=== PATIENT | female | born 1980 | race Caucasian/White ===

== ENCOUNTER 2017-07-26 21:34 | Emergency (ER) | payer OTHER, MEDICAID, SELFPAY | END 2017-07-26 23:44 | disposition home or self-care (01) | PROVIDERS: Emergency Provider Emergency Medicine; Visit Provider Emergency Medicine | DX: S89.91XA Unspecified injury of right lower leg, initial encounter (principal); W19.XXXA Unspecified fall, initial encounter | CPT/HCPCS: 73562; 99283 ==

== ENCOUNTER 2017-09-02 20:44 | Emergency (ER) | payer OTHER, MEDICAID, SELFPAY ==
[2017-09-02 20:57] VITALS: BP 116/82; PULSE 107; RESP 20; TEMP 37.7; O2SAT 100
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
--- NOTE | 2017-09-02 22:45 | DI.RAD.S_ITS ---
PROCEDURE: XR CHEST 2V INDICATIONS: cough, malaise TECHNIQUE: 2 views of the chest were acquired. COMPARISON: [facility], , CHEST 2 VIEW, 12/25/2016, 10:22. FINDINGS: Surgical changes and devices: None. Lungs and pleura: No pleural effusions or pneumothorax. Lungs are clear. Bilaterally symmetric nipple shadows incidentally noted. Mediastinum: Mediastinal contours are normal. Heart size is normal. Bones and chest wall: No suspicious bony abnormalities. Incidentally noted pectus excavatum Soft tissues appear unremarkable. IMPRESSION: No acute disease. Dictated by: Grady Rojas M.D. on 09/03/2017 at 7:25 Approved by: Grady Rojas M.D. on 09/03/2017 at 7:26
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
[2017-09-03 00:08] VITALS: BP 101/78; PULSE 78; RESP 18; O2SAT 98
== END 2017-09-03 00:20 | disposition home or self-care (01) ==
PROVIDERS: Emergency Provider Emergency Medicine
DX: J32.9 Chronic sinusitis, unspecified (principal)
CPT/HCPCS: 71046; 99282; 99283

== ENCOUNTER 2018-03-13 15:20 | Emergency (ER) | payer SELFPAY ==
[2018-03-13 15:28] VITALS: BP 123/78; PULSE 113; RESP 20; TEMP 37.1; O2SAT 100; BMI 20.6
[2018-03-13 17:17] LABS: Prothrombin Time 10.8 SECONDS (10.1-12.7)
[2018-03-13 17:19] LABS: PTT Partial Thromboplastin Tim 31 SECONDS (26.4-36.2)
[2018-03-13 17:20] LABS: Add Manual Diff / Slide Review NO; Basophils Percent Auto 0.7 % (0-2); Eosinophils Percent Auto 1.2 % (2-4); Hematocrit 44.8 % (36-46); Hemoglobin 15.5 g/dL (12.0-16.0); Lymphocytes Percent Auto 11.8 % (25-40); Mean Corpuscular HGB Conc 34.6 % (30-36); Mean Corpuscular Hemoglobin 32.7 PG (26-34); Mean Corpuscular Volume 94.6 fL (80-100); Neutrophils Absolute Auto 9000 /uL (3000-5900); Neutrophils Percent Auto 79.3 % (50-75); Platelet Count 215 X10^3/uL (150-400); Red Blood Cell Count 4.74 X10^6/uL (4.0-5.2); Red Cell Distribution Width 14.5 % (11.6-14.8); White Blood Cell Count 11.4 X10^3/uL (4.5-11.0)
--- NOTE | 2018-03-13 17:20 | PC.NURSE ---
Reports urine tests dont always show . States 2 tests at home positive. She brought those. Urine preg negative here. Added qual preg to blood
[2018-03-13 17:21] LABS: Alanine Aminotransferase 21 IU/L (9-52); Albumin 4.6 g/dL (3.5-5.0); Albumin Globulin Ratio 1.6 (1.0-2.8); Alkaline Phosphatase 52 U/L (38-126); Aspartate Aminotransferase 24 IU/L (14-36); BUN Creatinine Ratio 12.9 (6-22); Bilirubin Total 0.8 mg/dL (0.2-1.3); Blood Urea Nitrogen 9 mg/dL (7-17); Calcium 9.1 mg/dL (8.4-10.2); Carbon Dioxide 26 mmol/L (22-32); Chloride 103 mmol/L (98-107); Creatine Kinase 115 U/L (30-135); Estimated Glomerular Filt Rate > 60.0 mL/min (>60); Globulin 2.9 g/dL (1.7-4.1); Glucose 93 mg/dL (70-100); HEMOLYSIS < 15 (0-50); Lipase 82 U/L (23-300); Potassium 4.1 mmol/L (3.4-5.1); Sodium 140 mmol/L (137-145); Total Protein 7.5 g/dL (6.3-8.2)
[2018-03-13 17:33] LABS: Troponin I < 0.012 ng/mL (0.01-0.034)
[2018-03-13 17:36] LABS: CKMB % Relative Index 0.8 % (1.5-5.0); Creatine Kinase MB 0.94 ng/mL (<2.37)
[2018-03-13 17:40] LABS: Bacteria Urine Moderate (10-30); Culture Indicated Urine Specimen Cultured; RBC Urine 0-1/HPF (0-5/HPF); Squamous Epithelial Cell Urine None Seen; WBC Urine 0-1/HPF (0-5/HPF)
[2018-03-13 18:07] LABS: HCG Quantitative /Beta subunit < 2.39 mIU/mL
--- NOTE | 2018-03-13 18:13 | ED.BACK ---
HPI - Back Pain/Injury <ANETA Gage - Last Filed: 03/13/18 22:36> General Chief Complaint: Back Pain/Injury Stated Complaint: LT SHOULDER PAIN Time Seen by Provider: 03/13/18 17:30 Source: patient Mode of arrival: ambulatory Limitations: no limitations History of Present Illness HPI Narrative: 37-year-old female with history of anxiety that is an everyday smoker here for complaint of pain to her chest and to her left anterior posterior shoulder for the past month. She denies any trauma to the area. 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 She states that intermittently she will get pain or numbness that goes down her left arm. She denies any stressors or relievers of the discomfort she also states she has had two home tests yesterday. She denies any other concerns Related Data Home Medications Medication Instructions Recorded Confirmed diphenhydramine HCl 50 mg PO PRN PRN #0 03/26/16 03/13/18 [vitamins] 1 dose PO DAILY #0 12/29/16 03/13/18 albuterol sulfate [Ventolin HFA] 2 puff INH PRN PRN #0 12/29/16 03/13/18 acetaminophen [Tylenol Extra 500 mg PO PRN PRN 03/13/18 03/13/18 Strength] epinephrine 0.3 mg IM X1 PRN 03/13/18 03/13/18 Allergies Allergy/AdvReac Type Severity Reaction Status Date / Time almond [ALMOND] Allergy Unknown Verified 09/02/17 21:01 aspirin [ASPIRIN] Allergy Unknown Verified 09/02/17 21:01 egg [EGG] Allergy Unknown Verified 09/02/17 21:01 hazelnut [HAZELNUT] Allergy Unknown Verified 09/02/17 21:01 ibuprofen [IBUPROFEN] Allergy Unknown Verified 09/02/17 21:01 latex [LATEX] Allergy Unknown Verified 09/02/17 21:01 soy [SOY] Allergy Unknown Verified 09/02/17 21:01 tree nut [TREE NUT] Allergy Unknown Verified 09/02/17 21:01 acetaminophen [From Vicodin] Allergy Verified 09/02/17 21:02 hydrocodone [From Vicodin] Allergy Verified 09/02/17 21:02 diazepam [DIAZEPAM] AdvReac Unknown Verified 05/20/18 21:01 promethazine [PROMETHAZINE] AdvReac Unknown Verified 09/02/17 21:01 tetracycline [TETRACYCLINE] AdvReac Unknown Verified 09/02/17 21:02 Review of Systems <ANETA Gage - Last Filed: 03/13/18 22:36> Constitutional Denies chills, Denies fatigue, Denies fever(s), Denies lethargy and Denies weakness Eyes Denies change in vision, Denies eye discharge, Denies irritation and Denies loss of vision ENT Ears, Nose, Mouth, and Throat: Denies change in voice, Denies neck pain and Denies sore throat Cardiovascular Reports chest pain, Denies dyspnea and Denies dyspnea on exertion Respiratory Denies cough, Denies dyspnea, Denies dyspnea on exertion and Denies wheezing Gastrointestinal Gastrointestinal: Denies abdominal pain, Denies change in bowel habits, Denies diarrhea, Denies nausea and Denies vomiting Genitourinary Denies hematuria, Denies flank pain, Denies urinary incontinence and Denies urinary urgency Musculoskeletal Denies neck pain Comments: Left shoulder pain Integumentary/Breasts Denies pruritus, Denies erythema, Denies rash and Denies wounds Neurologic Denies confusion, Denies loss of vision and Denies weakness Psychiatric Denies anxiety, Denies confusion, Denies depression, Denies homicidal ideation and Denies suicidal ideation Endocrine Denies fatigue and Denies flushing Hematologic/Lymphatic Denies easy bruising Allergic/Immunologic Denies wheezing Exam <ANETA Gage - Last Filed: 03/13/18 22:36> Initial Vital Signs Initial Vital Signs: Vital Signs Temperature 98.7 F 03/13/18 15:28 Pulse Rate 113 H 03/13/18 15:28 Respiratory Rate 20 03/13/18 15:28 Blood Pressure 123/78 03/13/18 15:28 Pulse Oximetry 100 03/13/18 15:28 Const General: cooperative and well developed Nutritional Appearance: well nourished Orientation: alert, awake, oriented x3 and not confused HENMT Mouth: oral mucosae normal and moist mucous membranes Eyes Conjunctivae: conjunctivae normal Sclera: sclerae normal Pupils: PERRL EOM: EOM intact bilaterally Chest Other: Tenderness on palpation to anterior chest Resp Effort & Inspection: normal respiratory effort, able to speak in complete sentences, no respiratory distress and no use of accessory muscles Auscultation: clear to auscultation bilaterally, no rales, no rhonchi and no wheezes Cardio Rate: regular rate Rhythm: regular rhythm Heart Sounds: no click, no gallops, no murmurs and no rubs GI Inspection: non-distended Palpation: soft, no hepatosplenomegaly, No guarding, No pulsatile mass and No tender Auscultation: normal bowel sounds Skin General: no rashes or lesions noted, No jaundice and No petechiae Neuro General: alert, oriented x3, gait normal and no focal motor deficits Speech: speech normal Extrem Other: Tenderness on palpation to the thoracic left paraspinals and also to the left scapular area. Left extremity with no signs of trauma. No tenderness. Distal sensation is intact. Distal pulses are intact. Full Range of motion <Alex Grant DO - Last Filed: 03/14/18 00:30> Initial Vital Signs Initial Vital Signs: Vital Signs Temperature 98.7 F 03/13/18 15:28 Pulse Rate 113 H 03/13/18 15:28 Respiratory Rate 20 03/13/18 15:28 Blood Pressure 123/78 03/13/18 15:28 Pulse Oximetry 100 03/13/18 15:28 Course <ANETA Gage - Last Filed: 03/13/18 22:36> Orders Ordered: ED Orders 03/13/18 15:32 EKG-12 Lead Stat 03/13/18 16:57 Complete Blood Count AUTO DIFF Stat Comprehensive Metabolic Panel Stat HCG Quantitative Stat Lipase Stat Partial Thromboplastin Time Stat Prothrombin Time INR Stat Troponin & CK Cardiac Panel Stat 03/13/18 17:15 Urine Culture Stat Urine Microscopic Stat Vital Signs - 8 hr 03/13/18 18:18 Pulse Rate 92 H Respiratory Rate 15 Blood Pressure [Left Arm] 106/69 Pulse Oximetry 96 <Alex Grant DO - Last Filed: 03/14/18 00:30> Orders Ordered: ED Orders 03/13/18 15:32 EKG-12 Lead Stat 03/13/18 16:57 Complete Blood Count AUTO DIFF Stat Comprehensive Metabolic Panel Stat HCG Quantitative Stat Lipase Stat Partial Thromboplastin Time Stat Prothrombin Time INR Stat Troponin & CK Cardiac Panel Stat 03/13/18 17:15 Urine Culture Stat Urine Microscopic Stat Vital Signs - 8 hr 03/13/18 18:18 Pulse Rate 92 H Respiratory Rate 15 Blood Pressure [Left Arm] 106/69 Pulse Oximetry 96 MDM - Back Pain/Injury <ANETA Gage - Last Filed: 03/13/18 22:36> Lab Data Result diagrams: 03/13/18 16:57 03/13/18 16:57 Lab Results 03/13/18 03/13/18 03/13/18 Range/Units 16:57 16:57 16:57 WBC 11.4 H (4.5-11.0) X10^3/uL RBC 4.74 (4.0-5.2) X10^6/uL Hgb 15.5 (12.0-16.0) g/dL Hct 44.8 (36-46) % MCV 94.6 (80-100) fL MCH 32.7 (26-34) PG MCHC 34.6 (30-36) % RDW 14.5 (11.6-14.8) % Plt Count 215 (150-400) X10^3/uL Neut % (Auto) 79.3 H (50-75) % Lymph % (Auto) 11.8 L (25-40) % [place] % (Auto) 7.0 (3-14) % Eos % (Auto) 1.2 L (2-4) % Baso % (Auto) 0.7 (0-2) % Neut # (Auto) 9000 H (7720-2544) /uL PT 10.8 (10.1-12.7) SECONDS INR 1.0 (0.9-1.3) APTT 31 (26.4-36.2) SECONDS Sodium 140 (137-145) mmol/L Potassium 4.1 (3.4-5.1) mmol/L Chloride 103 (98-107) mmol/L Carbon Dioxide 26 (22-32) mmol/L BUN 9 (7-17) mg/dL Creatinine 0.70 (0.52-1.04) mg/dL Estimated GFR > 60.0 (>60) mL/min BUN/Creatinine Ratio 12.9 (6-22) Glucose 93 (70-100) mg/dL Calcium 9.1 (8.4-10.2) mg/dL Total Bilirubin 0.8 (0.2-1.3) mg/dL AST 24 (14-36) IU/L ALT 21 (9-52) IU/L Alkaline Phosphatase 52 (38-126) U/L Total Creatine Kinase 115 (30-135) U/L CK-MB (CK-2) 0.94 (<2.37) ng/mL CK-MB (CK-2) Rel Index 0.8 L (1.5-5.0) % Troponin I < 0.012 (0.01-0.034) ng/mL Total Protein 7.5 (6.3-8.2) g/dL Albumin 4.6 (3.5-5.0) g/dL Globulin 2.9 (1.7-4.1) g/dL Albumin/Globulin Ratio 1.6 (1.0-2.8) Lipase 82 (23-300) U/L HCG, Quant mIU/mL Urine RBC (0-5/HPF) Urine WBC (0-5/HPF) Ur Squamous Epith Cells Urine Bacteria (None) Ur Culture Indicated? Micro UA Comment 03/13/18 03/13/18 Range/Units 16:57 17:15 WBC (4.5-11.0) X10^3/uL RBC (4.0-5.2) X10^6/uL Hgb (12.0-16.0) g/dL Hct (36-46) % MCV (80-100) fL MCH (26-34) PG MCHC (30-36) % RDW (11.6-14.8) % Plt Count (150-400) X10^3/uL Neut % (Auto) (50-75) % Lymph % (Auto) (25-40) % [place] % (Auto) (3-14) % Eos % (Auto) (2-4) % Baso % (Auto) (0-2) % Neut # (Auto) (0886-4672) /uL PT (10.1-12.7) SECONDS INR (0.9-1.3) APTT (26.4-36.2) SECONDS Sodium (137-145) mmol/L Potassium (3.4-5.1) mmol/L Chloride (98-107) mmol/L Carbon Dioxide (22-32) mmol/L BUN (7-17) mg/dL Creatinine (0.52-1.04) mg/dL Estimated GFR (>60) mL/min BUN/Creatinine Ratio (6-22) Glucose (70-100) mg/dL Calcium (8.4-10.2) mg/dL Total Bilirubin (0.2-1.3) mg/dL AST (14-36) IU/L ALT (9-52) IU/L Alkaline Phosphatase (38-126) U/L Total Creatine Kinase (30-135) U/L CK-MB (CK-2) (<2.37) ng/mL CK-MB (CK-2) Rel Index (1.5-5.0) % Troponin I (0.01-0.034) ng/mL Total Protein (6.3-8.2) g/dL Albumin (3.5-5.0) g/dL Globulin (1.7-4.1) g/dL Albumin/Globulin Ratio (1.0-2.8) Lipase (23-300) U/L HCG, Quant < 2.39 mIU/mL Urine RBC 0-1/hpf (0-5/HPF) Urine WBC 0-1/hpf (0-5/HPF) Ur Squamous Epith Cells None seen Urine Bacteria Moderate (10-30) H (None) Ur Culture Indicated? Specimen cultured Micro UA Comment Not Reportable Point of Care Testing Test Results Negative Urine Dip Bedside Urine Glucose Negative Bedside Urine Bilirubin - Negative Bedside Urine Ketone - Negative Urine Specific [place] 1.010 Bedside Urine Occult Blood - Negative Bedside Urine pH 6.5 Bedside Urine Protein - Negative Bedside Urine Urobilinogen - Negative Bedside Urine Nitrite + Positive Bedside Urine Leukocytes - Negative Esterase ECG Data Interpretation: EKG shows sinus rhythm with no ST elevation. No ectopy. Ventricular rate of 92. Pr interval of 140. QRS duration of 79. QTC of 402 MDM Narrative Medical decision making narrative: EKG shows sinus rhythm with no ST elevation or depression. No ectopy. CBC was obtained and shows mildly elevated white count of 11.4 And elevated neutrophils otherwise is unremarkable. Chem panel was obtained was unremarkable. Troponin was negative. urinalysis was negative for and showed moderate bacteria however no white count and no leuko esterase. Patient is not having any urinary symptoms. POC urine dip was negative for . HCG quant was obtained and was less than 2. It is possible patient may have had a miscarriage between the time of her positive home test and arrival to the emergency room. Chest x-ray and shoulder x-ray was ordered however patient refused and decided she wanted to leave and go home. Recommended patient obtain a chest x-ray and shoulder I have x-ray she refused left AMA. She is encouraged to follow up with primary care provider. <Alex Grant, DO - Last Filed: 03/14/18 00:30> Lab Data Lab Results 03/13/18 03/13/18 03/13/18 Range/Units 16:57 16:57 16:57 WBC 11.4 H (4.5-11.0) X10^3/uL RBC 4.74 (4.0-5.2) X10^6/uL Hgb 15.5 (12.0-16.0) g/dL Hct 44.8 (36-46) % MCV 94.6 (80-100) fL MCH 32.7 (26-34) PG MCHC 34.6 (30-36) % RDW 14.5 (11.6-14.8) % Plt Count 215 (150-400) X10^3/uL Neut % (Auto) 79.3 H (50-75) % Lymph % (Auto) 11.8 L (25-40) % [place] % (Auto) 7.0 (3-14) % Eos % (Auto) 1.2 L (2-4) % Baso % (Auto) 0.7 (0-2) % Neut # (Auto) 9000 H (4867-3490) /uL PT 10.8 (10.1-12.7) SECONDS INR 1.0 (0.9-1.3) APTT 31 (26.4-36.2) SECONDS Sodium 140 (137-145) mmol/L Potassium 4.1 (3.4-5.1) mmol/L Chloride 103 (98-107) mmol/L Carbon Dioxide 26 (22-32) mmol/L BUN 9 (7-17) mg/dL Creatinine 0.70 (0.52-1.04) mg/dL Estimated GFR > 60.0 (>60) mL/min BUN/Creatinine Ratio 12.9 (6-22) Glucose 93 (70-100) mg/dL Calcium 9.1 (8.4-10.2) mg/dL Total Bilirubin 0.8 (0.2-1.3) mg/dL AST 24 (14-36) IU/L ALT 21 (9-52) IU/L Alkaline Phosphatase 52 (38-126) U/L Total Creatine Kinase 115 (30-135) U/L CK-MB (CK-2) 0.94 (<2.37) ng/mL CK-MB (CK-2) Rel Index 0.8 L (1.5-5.0) % Troponin I < 0.012 (0.01-0.034) ng/mL Total Protein 7.5 (6.3-8.2) g/dL Albumin 4.6 (3.5-5.0) g/dL Globulin 2.9 (1.7-4.1) g/dL Albumin/Globulin Ratio 1.6 (1.0-2.8) Lipase 82 (23-300) U/L HCG, Quant mIU/mL Urine RBC (0-5/HPF) Urine WBC (0-5/HPF) Ur Squamous Epith Cells Urine Bacteria (None) Ur Culture Indicated? Micro UA Comment 03/13/18 03/13/18 Range/Units 16:57 17:15 WBC (4.5-11.0) X10^3/uL RBC (4.0-5.2) X10^6/uL Hgb (12.0-16.0) g/dL Hct (36-46) % MCV (80-100) fL MCH (26-34) PG MCHC (30-36) % RDW (11.6-14.8) % Plt Count (150-400) X10^3/uL Neut % (Auto) (50-75) % Lymph % (Auto) (25-40) % [place] % (Auto) (3-14) % Eos % (Auto) (2-4) % Baso % (Auto) (0-2) % Neut # (Auto) (9538-0332) /uL PT (10.1-12.7) SECONDS INR (0.9-1.3) APTT (26.4-36.2) SECONDS Sodium (137-145) mmol/L Potassium (3.4-5.1) mmol/L Chloride (98-107) mmol/L Carbon Dioxide (22-32) mmol/L BUN (7-17) mg/dL Creatinine (0.52-1.04) mg/dL Estimated GFR (>60) mL/min BUN/Creatinine Ratio (6-22) Glucose (70-100) mg/dL Calcium (8.4-10.2) mg/dL Total Bilirubin (0.2-1.3) mg/dL AST (14-36) IU/L ALT (9-52) IU/L Alkaline Phosphatase (38-126) U/L Total Creatine Kinase (30-135) U/L CK-MB (CK-2) (<2.37) ng/mL CK-MB (CK-2) Rel Index (1.5-5.0) % Troponin I (0.01-0.034) ng/mL Total Protein (6.3-8.2) g/dL Albumin (3.5-5.0) g/dL Globulin (1.7-4.1) g/dL Albumin/Globulin Ratio (1.0-2.8) Lipase (23-300) U/L HCG, Quant < 2.39 mIU/mL Urine RBC 0-1/hpf (0-5/HPF) Urine WBC 0-1/hpf (0-5/HPF) Ur Squamous Epith Cells None seen Urine Bacteria Moderate (10-30) H (None) Ur Culture Indicated? Specimen cultured Micro UA Comment Not Reportable Point of Care Testing Test Results Negative Urine Dip Bedside Urine Glucose Negative Bedside Urine Bilirubin - Negative Bedside Urine Ketone - Negative Urine Specific [place] 1.010 Bedside Urine Occult Blood - Negative Bedside Urine pH 6.5 Bedside Urine Protein - Negative Bedside Urine Urobilinogen - Negative Bedside Urine Nitrite + Positive Bedside Urine Leukocytes - Negative Esterase Discharge Plan Departure Patient Disposition: Left Against Medical Advice Clinical Impression: Chest pain, Acute pain of left shoulder Discharge Date/Time: 03/13/18 18:56 Interventions: ED Discharge Assessment Last Done: 03/13/18 18:56 Prescriptions: No Action diphenhydramine HCl 50 MG capsule 50 mg PO PRN PRN (Reason: Allergy Symptoms) Qty: 0 RF: 0 albuterol sulfate [Ventolin HFA] 90 MCG/PUFF HFA aerosol inhaler 2 puff INH PRN PRN (Reason: Shortness Of Breath) Qty: 0 RF: 0 [vitamins] 1 dose PO DAILY Qty: 0 RF: 0 acetaminophen [Tylenol Extra Strength] 500 mg Tablet 500 mg PO PRN PRN (Reason: pain) RF: 0 epinephrine 0.3 MG/0.3 ML auto-injector 0.3 mg IM X1 PRN (Reason: Allergic Reaction) RF: 0 Referrals: [facility] [Provider Group] Stand Alone Forms: Against Medical Advice <Alex Grant DO - Last Filed: 03/14/18 00:30> Cosign ED Attending Sada Attestation: I was available for consultation during this patient's emergency department encounter
[2018-03-13 18:18] VITALS: BP 106/69; PULSE 92; RESP 15; O2SAT 96
== END 2018-03-13 18:56 | disposition left against medical advice (07) ==
PROVIDERS: Emergency Medicine; Emergency Provider Nurse Practitioner Family
DX: R07.89 Other chest pain (principal); M25.512 Pain in left shoulder
CPT/HCPCS: 36415; 80053; 81003; 81015; 81025; 82550; 82553; 83690; 84484; 84702; 85025; 85610; 85730; 87077; 87086; 87186; 93005; 93010; 99283; 99284

== ENCOUNTER 2018-06-02 18:03 | Emergency (ER) | payer SELFPAY ==
[2018-06-02 18:14] VITALS: BP 136/89; PULSE 117; RESP 28; TEMP 36.9; O2SAT 100; BMI 19.8
--- NOTE | 2018-06-02 18:22 | ED.ALLEREA ---
HPI - Allergic Reaction General Chief complaint: Allergic Reaction Stated complaint: Allergic reaction Time Seen by Provider: 06/02/18 18:22 Source: patient Mode of arrival: EMS Limitations: no limitations History of Present Illness HPI narrative: The patient arrives by EMS complaining of an allergic reaction. Her boyfriend was kicked out of her house today because he vapors, and refused to quit. What ever he was smoking was making her sick, anxious, and she is convinced she had a reaction. She is feeling anxious and short of breath. She has no asthma or allergies. She is not a smoker. She denies using drugs herself. She has a history of nut allergy, she says the current reaction feels like a nut exposure. She has no airway tightness. She is not coughing. There is slight redness in her anterior neck, no other rash. She took Benadryl 50 mg p.o. at home prior to arrival. Paramedics gave her an injection of epinephrine. Upon arrival she is anxious. She is talking in full sentences. There is no voice change or obvious difficulty breathing. She denies a nice exposure to nuts, her known food allergy. She slipped on ice and fell striking her head about 1 week ago. She complains of posterior headache. She has no confusion. She has no visual changes. She has injuries on her lower leg but she was unaware of. Related Data Home Medications Medication Instructions Recorded Confirmed diphenhydramine HCl 50 mg PO PRN PRN #0 03/26/16 03/13/18 [vitamins] 1 dose PO DAILY #0 12/29/16 03/13/18 albuterol sulfate [Ventolin HFA] 2 puff INH PRN PRN #0 12/29/16 03/13/18 acetaminophen [Tylenol Extra 500 mg PO PRN PRN 03/13/18 03/13/18 Strength] epinephrine 0.3 mg IM X1 PRN 03/13/18 03/13/18 Allergies Allergy/AdvReac Type Severity Reaction Status Date / Time almond [ALMOND] Allergy Unknown Verified 06/02/18 18:14 aspirin [ASPIRIN] Allergy Unknown Verified 06/02/18 18:14 egg [EGG] Allergy Unknown Verified 06/02/18 18:14 hazelnut [HAZELNUT] Allergy Unknown Verified 06/02/18 18:14 ibuprofen [IBUPROFEN] Allergy Unknown Verified 06/02/18 18:14 latex [LATEX] Allergy Unknown Verified 06/02/18 18:14 soy [SOY] Allergy Unknown Verified 06/02/18 18:14 tree nut [TREE NUT] Allergy Unknown Verified 06/02/18 18:14 acetaminophen [From Vicodin] Allergy Verified 06/02/18 18:14 hydrocodone [From Vicodin] Allergy Verified 06/02/18 18:14 diazepam [DIAZEPAM] AdvReac Unknown Verified 06/02/18 18:14 promethazine [PROMETHAZINE] AdvReac Unknown Verified 06/02/18 18:14 tetracycline [TETRACYCLINE] AdvReac Unknown Verified 06/02/18 18:14 Review of Systems Review of Systems ROS Unobtainable: All systems reviewed & are unremarkable except as noted in HPI and below Constitutional Denies excessive sweating, Denies fatigue, Denies fever(s), Reports headache(s) and Denies lethargy Eyes Denies blind spots, Denies blurry vision and Denies diplopia ENT Ears, Nose, Mouth, and Throat: Denies dysphagia, Denies vertigo, Denies dizziness, Reports headache(s), Reports nasal discharge and Denies sinus pain Comments: Left ear pain Cardiovascular Denies chest pain, Denies irregular heart rhythm, Denies lightheadedness, Denies palpitations, Reports dyspnea, Denies dyspnea on exertion and Denies orthopnea Respiratory Denies cough, Reports dyspnea, Denies dyspnea on exertion and Denies wheezing Gastrointestinal Gastrointestinal: Reports abdominal pain ( epigastric) and Denies dysphagia Comments: Decreased appetite. Decreased bowel movements. Genitourinary Denies urinary frequency and Denies dysuria Musculoskeletal Denies myalgias Integumentary/Breasts Denies pruritus and Denies rash Neurologic Denies vertigo, Denies dizziness and Reports headache(s) Endocrine Denies excessive sweating, Denies fatigue and Denies palpitations Allergic/Immunologic Denies wheezing PFSH Medical History Nut allergy (Acute) Surgical History History of tonsillectomy Status post delivery Social History Smoking Status: Current every day smoker Social History Smoking Status: Current every day smoker Exam Initial Vital Signs Initial Vital Signs: Vital Signs Temperature 98.4 F 06/02/18 18:14 Pulse Rate 117 H 06/02/18 18:14 Respiratory Rate 28 H 06/02/18 18:14 Blood Pressure 136/89 06/02/18 18:14 Pulse Oximetry 100 06/02/18 18:14 Const General: cooperative, well developed, anxious, No ill appearing and No intoxicated appearing Nutritional Appearance: average body habitus Orientation: alert and oriented x3 Limitations: mental status not altered HENMT Head: normocephalic and atraumatic Ears: TM's normal bilaterally and other ( both TMs are retracted, not infected) Nose: external nose normal and No nasal discharge Face and sinus: sinuses nontender, face symmetric, no sinus tenderness and No dry mucous membranes Mouth: oral mucosae normal, moist mucous membranes and other ( no oralpharyngeal edema or erythema) Teeth and gingiva: dentition normal Throat: tonsils normal and uvula midline Eyes Conjunctivae: conjunctivae normal Neck Neck: normal visual inspection, full ROM, trachea midline, No lymphadenopathy and No tender Chest Chest: normal inspection of the chest Resp Effort & Inspection: normal respiratory effort, able to speak in complete sentences and no respiratory distress Auscultation: clear to auscultation bilaterally, no rales, no rhonchi and no wheezes Cardio Rate: regular rate Rhythm: regular rhythm Heart Sounds: no click, no gallops, no murmurs and no rubs Pulses: normal peripheral pulses GI Inspection: non-distended Palpation: soft, no hepatosplenomegaly, No pulsatile mass and tender ( mild epigastric tenderness without guarding or rebound) Auscultation: normal bowel sounds Back/Spine/Pelvis Back: No CVA tenderness Skin General: no rashes or lesions noted Neuro General: alert, awake, oriented x3, gait normal and no focal motor deficits Speech: speech normal Extrem General: full ROM, no pedal edema, no calf tenderness and other ( Contusions on lower anterior tibias bilaterally) Course Course Narrative: Her anxiety has improved. She has no rash. Her airway is clear. Her lungs are clear. she was clearly in a stressful interaction today with her boyfriend departing. It is unknown what substance was being utilized while vaping. She presented with concerns about allergic reaction, but clearly has an anxiety problem immediately. On repeat exam there is no issues with allergic reaction, she continues to have an anxiety concern. She is now concerned about headache, ear pain, bruises on her legs, abdominal pain, complaints are ongoing. She was given Maalox for stomach pain and lack of bowel movements. She has eardrum retraction, no infection or foreign body. Allergic reaction is not an ongoing concern Orders Ordered: Discontinued Medications Al Hydrox/Mg Hydrox/Simethicone (Maalox Plus) 30 ml PO NOW ONE Stop: 06/02/18 19:33 Last Admin: 06/02/18 19:39 Dose: 30 ml Sodium Chloride (Normal Saline 0.9%) 1,000 mls @ 1,000 mls/hr IV BOLUS ONE Stop: 06/02/18 19:22 Last Infusion: 06/02/18 19:30 Dose: 0 mls/hr Admin: 06/02/18 18:26 Dose: 1,000 mls/hr Ondansetron HCl (Zofran) 4 mg IV NOW ONE Stop: 06/02/18 18:25 Last Admin: 06/02/18 18:26 Dose: 4 mg Vital Signs - 8 hr 06/02/18 18:14 06/02/18 19:00 Temperature 98.4 F Pulse Rate 117 H 91 H Respiratory Rate 28 H 12 Blood Pressure 136/89 Blood Pressure [Right Arm] 111/69 Pulse Oximetry 100 100 MDM - Allergic Reaction Lab Data Lab Results 06/02/18 Range/Units 18:30 Urine Opiates Screen Negative (Negative) Ur Oxycodone Screen Negative (Negative) Urine Methadone Screen Negative (Negative) Ur Barbiturates Screen Negative (Negative) U Tricyclic Antidepress Negative (Negative) Ur Phencyclidine Scrn Negative (Negative) Ur Amphetamines Screen Negative (Negative) U Methamphetamines Scrn Negative (Negative) Ur MDMA Scrn (Ecstasy) Negative (Negative) U Benzodiazepines Scrn Negative (Negative) Urine Cocaine Screen Negative (Negative) U Marijuana (THC) Screen Negative (Negative) Point of Care Testing Test Results Negative Discharge Plan Departure Patient Disposition: Home Clinical Impression: Allergic reaction Qualifiers: Encounter type: initial encounter Qualified Code(s): T78.40XA - Allergy, unspecified, initial encounter Discharge Date/Time: 06/02/18 20:03 Interventions: ED Discharge Assessment Last Done: 02/17/19 20:02 Instructions: DI for General Allergic Reactions Activity Restrictions/Additional Instructions: Benadryl every 4-6 hours as needed for concern of allergy symptoms. Maalox 2 tbsp every 4-6 hours as needed until the abdominal pain and constipation resolved. You need to drink a lot of water with the Maalox. Mucinex is available over the counter, this should help the ear discomfort. You have sinus congestion, no infection. Return to the ER as needed. Prescriptions: No Action diphenhydramine HCl 50 MG capsule 50 mg PO PRN PRN (Reason: Allergy Symptoms) Qty: 0 RF: 0 albuterol sulfate [Ventolin HFA] 90 MCG/PUFF HFA aerosol inhaler 2 puff INH PRN PRN (Reason: Shortness Of Breath) Qty: 0 RF: 0 [vitamins] 1 dose PO DAILY Qty: 0 RF: 0 acetaminophen [Tylenol Extra Strength] 500 mg Tablet 500 mg PO PRN PRN (Reason: pain) RF: 0 epinephrine 0.3 MG/0.3 ML auto-injector 0.3 mg IM X1 PRN (Reason: Allergic Reaction) RF: 0
[2018-06-02] MEDS: ONDANSETRON 4 MG/2 ML INJ IV (18:26)
[2018-06-02] MEDS: SODIUM CHLORIDE 0.9% 1,000 ML 1000 ML IV (18:26)
[2018-06-02 18:42] LABS: Urine Amphetamines Negative (Negative); Urine Barbiturates Negative (Negative); Urine Benzodiazepines Negative (Negative); Urine Cocaine Negative (Negative); Urine MDMA Negative (Negative); Urine Methadone Negative (Negative); Urine Methamphetamines Negative (Negative); Urine Morphine/Opi cutoff 2000 Negative (Negative); Urine Oxycodone Negative (Negative); Urine Phencyclidine Negative (Negative); Urine Tetrahydrocannabinol Negative (Negative); Urine Tricyclic Antidepressant Negative (Negative)
[2018-06-02 19:00] VITALS: BP 111/69; PULSE 91; RESP 12; O2SAT 100
[2018-06-02 19:30] VITALS: PULSE 91; RESP 13; O2SAT 100
[2018-06-02] MEDS: MAG HYDROX/ALUM/SIMETH 30 ML UDC PO (19:39)
[2018-06-02 19:59] VITALS: BP 112/63; PULSE 92; RESP 16; O2SAT 100
[2018-06-02 20:02] VITALS: BP 112/63; PULSE 86; RESP 16; O2SAT 100
== END 2018-06-02 20:03 | disposition home or self-care (01) ==
PROVIDERS: Emergency Provider Emergency Medicine
DX: T78.40XA Allergy, unspecified, initial encounter (principal)
CPT/HCPCS: 36591; 80305; 81025; 96361; 96374; 99284; J2405

== ENCOUNTER → 2018-11-29 14:27 | Outpatient (CLI) | payer OTHER, MEDICAID, SELFPAY ==
--- NOTE | 2018-11-29 | DI.US.S_ITS ---
PROCEDURE: US OB >= 14 WEEKS FETUS INDICATIONS: 20 WEEK ANATOMICAL SURVEY OUTSIDE/PRIOR DATING DATA: Last menstrual period (LMP): 04/30/2018. LMP-based estimated date of delivery (JHONNY): 02/04/2019. First dating scan (date and location): 11/29/2018 [facility]. Estimated date of delivery (JHONNY) from first dating scan: 03/14/2019. TECHNIQUE: Real-time scanning was performed of the fetus, with image documentation and biometric measurements. COMPARISON: None available. FINDINGS: General: A single living intrauterine gestation is present. Presentation: Vertex. Placenta: Placental position is anterior, without previa. Amniotic fluid index: 15.4 cm, normal range is 5-24 cm. heart rate: 126 beats per minute. Maternal cervical canal: 3.7 cm long. Normal lower limit is 2.5 cm. biometrics: Biparietal diameter: 6.3 cm. 25 weeks 3/7 days. Head circumference: 23.5 cm. 25 weeks 4/7 days. Abdominal circumference: 20.6 cm. 25 weeks 1/7 days. Femur length: 4.2 cm. 23 weeks 4/7 days. Estimated gestational age from initial scan: not applicable. Composite gestational age from present scan: 25 weeks 0/7 days. Estimated weight: 516 g Measurement variability for biometric dating: +/- 7 days from 14 weeks to 15 weeks 6 days gestation, +/- 10 days from 16 weeks to 21 weeks 6 days gestation, +/- 2 weeks from 22 weeks to 27 weeks 6 days gestation, +/- 3 weeks for 28 weeks gestation or later. weight reference: 4500 g or EFW >90/95% is considered macrosomia or large for gestational age. EFW <10% is small for gestational age. EFW 5% or less is considered intra-uterine growth restriction. Anatomic survey: Neuro: Ventricles are non-dilated at less than 10 mm. Cisterna magna is normal at 3-11 mm. Cerebellum is normal in size and morphology. Nuchal skin fold: Normal at less than 6 mm between 14-21 weeks gestational age. Face: Nose and lips, facial profile are normal. Spine: No evidence for spina bifida. Heart: 4-chambered heart is present, with normal ventricular outflow tracts. Diaphragm: Diaphragm is intact. Stomach: Left-sided stomach is present. Kidneys: No hydronephrosis. Normal is less than 5 mm in 2nd trimester, less than 7 mm in 3rd trimester. Cord: 3-vessel cord has orthotopic insertion. Bladder: Normal in size. Extremities: All 4 extremities identified. IMPRESSION: 1. Coffey living intrauterine at 25 weeks 0/7 days based on today's ultrasound. 2. Normal amniotic fluid and placenta. 3. Normal and complete anatomic survey. Dictated by: Ollie Stauffer M.D. on 12/02/2018 at 9:58 Approved by: Ollie Stauffer M.D. on 12/02/2018 at 10:37
== END ==
PROVIDERS: PCP Student in an Organized Health Care Education/Training Program; Visit Provider Student in an Organized Health Care Education/Training Program
DX: Z36.89 Encounter for other specified antenatal screening (principal); Z3A.25 25 weeks gestation of pregnancy
CPT/HCPCS: 76801

== ENCOUNTER 2018-12-25 04:00 | Observation (INO) | payer OTHER, MEDICAID, SELFPAY ==
--- NOTE | 2018-12-25 06:14 | DI.US.S_ITS ---
PROCEDURE: US OB LIMITED INDICATIONS: PTL; EDGAR, CERVICAL LENGTH, PLACENTA OUTSIDE/PRIOR DATING DATA: Last menstrual period (LMP): 04/30/18. LMP-based estimated date of delivery (JHONNY): 02/04/19. First dating scan (date and location): 11/29/18, [facility] Estimated date of delivery (JHONNY) from first dating scan: 03/14/19. TECHNIQUE: Real-time scanning was performed of the fetus, with image documentation. COMPARISON: [facility], , OB >= 14 WEEKS FETUS, 11/29/2018, 14:45. FINDINGS: A single living intrauterine gestation is present. Presentation: Vertex. Placenta: Placental position is anterior, without previa. Amniotic fluid index: 18.8 cm, normal range is 5-24 cm. largest pocket 7.1 cm. heart rate: 127 beats per minute. Maternal cervical canal: 4.4 cm long. Normal lower limit is 2.5 cm. Estimated gestational age from initial scan: 03/14/19. IMPRESSION: 1. Single living third trimester intrauterine gestation, estimated at 28 weeks 5 days (no biometry performed today) 2. Normal EDGAR. 3. Cervix is long and closed. Dictated by: Elvin Haynes M.D. on 12/25/2018 at 8:51 Approved by: Elvin Haynes M.D. on 12/25/2018 at 8:56
[2018-12-25] MEDS: ACETAMINOPHEN 325 MG TABLET 975 MG PO (06:24)
[2018-12-25] MEDS: hydrOXYzine pamoate 25 MG CAPSULE 50 MG PO (06:24)
[2018-12-25] MEDS: TERBUTALINE 1 MG/ML VIAL 0.25 MG SUBCUT (06:30)
[2018-12-25 06:46] LABS: RBC Urine None Seen (0-5/HPF)
[2018-12-25 06:58] LABS: Appearance Urine UA CLEAR; Bilirubin Urine UA NEGATIVE (NEGATIVE); Color Urine UA YELLOW; Glucose Urine UA NEGATIVE (Negative); Ketones Urine UA NEGATIVE (NEGATIVE); Leukocyte Esterase Urine UA NEGATIVE (NEGATIVE); Nitrite Urine UA NEGATIVE (Negative); Occult Blood Urine UA NEGATIVE (Negative); Protein Urine UA NEGATIVE (Negative); Specific Gravity Urine UA <=1.005 (1.000-1.035); Urobilinogen Urine UA 0.2 E.U./dL (0.2)
[2018-12-25 07:05] LABS: Add Manual Diff / Slide Review NO; Basophils Absolute Auto 100 /uL (0-100); Basophils Percent Auto 0.5 % (0-2); Eosinophils Absolute Auto 200 /uL (0-450); Eosinophils Percent Auto 1.1 % (2-4); Lymphocytes Absolute Auto 2000 /uL (1100-4500); Lymphocytes Percent Auto 13.4 % (25-40); Mean Corpuscular HGB Conc 34.4 % (30-36); Mean Corpuscular Hemoglobin 34.7 PG (26-34); Monocytes Absolute Auto 900 /uL (0-900); Monocytes Percent Auto 5.9 % (3-14); Neutrophils Absolute Auto 11700 /uL (1500-7000); Neutrophils Percent Auto 79.1 % (50-75); Platelet Count 204 X10^3/uL (150-400); Red Blood Cell Count 3.17 X10^6/uL (4.0-5.2); Red Cell Distribution Width 15.4 % (11.6-14.8); White Blood Cell Count 14.8 X10^3/uL (4.5-11.0)
[2018-12-25 07:15] LABS: WBC Urine 1-5/HPF (0-5/HPF)
[2018-12-25 07:16] LABS: Bacteria Urine Occasional (0-1); Culture Indicated Urine Cult Not Indicated; Squamous Epithelial Cell Urine 0-1 /HPF (0-5/HPF)
[2018-12-25 07:17] LABS: Alanine Aminotransferase 20 IU/L (9-52); Albumin 3.3 g/dL (3.5-5.0); Albumin Globulin Ratio 1.2 (1.0-2.8); Alkaline Phosphatase 74 U/L (38-126); Aspartate Aminotransferase 18 IU/L (14-36); BUN Creatinine Ratio 12.5 (6-22); Bilirubin Total 0.5 mg/dL (0.2-1.3); Blood Urea Nitrogen 5 mg/dL (7-17); Calcium 8.6 mg/dL (8.4-10.2); Carbon Dioxide 22 mmol/L (22-32); Chloride 104 mmol/L (98-107); Estimated Glomerular Filt Rate > 60.0 mL/min (>60); Globulin 2.7 g/dL (1.7-4.1); Glucose 87 mg/dL (70-100); HEMOLYSIS < 15 (0-50); Potassium 3.6 mmol/L (3.4-5.1); Sodium 134 mmol/L (137-145)
[2018-12-25] MEDS: BETAMETHASONE 30 MG/5 ML MDV 12 MG IM (08:01)
--- NOTE | 2018-12-25 08:02 | P.TNLD_ITS ---
Visit Information Visit Information Date of evaluation: 12/25/18 Reason for Evaluation: Yes other Comments/Additional reasons for admission: 38 yo at 28w5d presents to labor and delivery secondary to increased frequency of contractions that started approximately 2 hours prior to presentation and increased activity. Woke up with the pain of the contraction. Denies unusual vaginal discharge or bleeding. No recent travel or new food. No recent intercourse. She is afebrile and otherwise well. Initial heart rate in the 140s to 150s with moderate variability and variables with a few lates. Contraction pattern was every 3-8 minutes. After approximately an hour, contractions increased to every 2-3 minutes with heart rate in the 150s, again with variables after almost every contraction. Patient was given fluids, Tylenol and vistaril with no improvement in symptoms. She has a history of labor. Past medical history: 1. History of general herpes 2. History of GBS 3. Tobacco use 4. PTSD 5. Anxiety 6. Seasonal allergies 7. Ovarian cysts 8. Chronic cholecystitis 9. Depression 10. Asthma 11. Anemia Past surgical history: 1. x3 2. Tonsillectomy Family history: Noncontributory Social history: Lives in [place] with Nicko, father of the baby, and a roommate. Feels safe in her relationship. In custody battles for her other kids. Tobacco use. Denies alcohol or illicit drug use. [facility] Medical History (Updated 12/25/18 @ 19:20 by Melissa Stubbs MD) Nut allergy (Acute) Surgical History History of tonsillectomy Status post delivery Social History Smoking Status: Current every day smoker Social History Smoking Status: Current every day smoker Review of Systems Review of Systems ROS Unobtainable: All systems reviewed & are unremarkable except as noted in HPI and below Exam Narrative Exam Narrative: GENERAL: Alert and oriented, appearing stated age and in no acute distress. HEENT: Head normocephalic/atraumatic. LUNGS: Clear to ausculation bilaterally, no wheezes, rhonchi or rales. CV: Normal S1 and S2 with regular rate and rhythm, no audible murmurs, rubs or gallops. ABDOMEN: Gravid, non-tender, non-distended, no organomegaly. Positive bowel sounds. : Normal female external genitalia, Misha stage 5. Vascular cause of moist, normal rugae shins. Copious current light white discharge in the vaginal vault and cervix. Cervix is visually closed. Digital exam revealed cervix to be closed, thick, and high. EXTREMITIES: No clubbing, cyanosis, or edema. NEURO: Cranial nerves II through XII grossly intact, no focal deficits. PSYCH: Alert and oriented x 3. SKIN: No concerning lesions. Objective Labs Result Diagrams: 12/25/18 06:38 12/25/18 06:38 Labs: Laboratory Results - last 24 hr 12/25/18 12/25/18 12/25/18 06:00 06:38 06:38 WBC 14.8 H RBC 3.17 L Hgb 11.0 L Hct 32.0 L MCV 101.0 H MCH 34.7 H MCHC 34.4 RDW 15.4 H Plt Count 204 Neut % (Auto) 79.1 H Lymph % (Auto) 13.4 L [place] % (Auto) 5.9 Eos % (Auto) 1.1 L Baso % (Auto) 0.5 Neut # (Auto) 94809 H Lymph # (Auto) 2000 [place] # (Auto) 900 Eos # (Auto) 200 Baso # (Auto) 100 Sodium 134 L Potassium 3.6 Chloride 104 Carbon Dioxide 22 BUN 5 L Creatinine 0.40 L Estimated GFR > 60.0 BUN/Creatinine Ratio 12.5 Glucose 87 Calcium 8.6 Total Bilirubin 0.5 AST 18 ALT 20 Alkaline Phosphatase 74 Total Protein 6.0 L Albumin 3.3 L Globulin 2.7 Albumin/Globulin Ratio 1.2 Urine Color Yellow Urine Appearance Clear Urine pH 7.0 Ur Specific [place] <=1.005 Urine Protein Negative Urine Glucose (UA) Negative Urine Ketones Negative Urine Occult Blood Negative Urine Nitrate Negative Urine Bilirubin Negative Urine Urobilinogen 0.2 Ur Leukocyte Esterase Negative Urine RBC None seen Urine WBC 1-5/hpf Ur Squamous Epith Cells 0-1 /hpf Urine Bacteria Occasional (0-1) D Ur Culture Indicated? Cult not indicated Evaluation Evaluation Laboratory results: Laboratory Tests 12/25/18 12/25/18 12/25/18 06:00 06:38 06:38 WBC 14.8 H RBC 3.17 L Hgb 11.0 L Hct 32.0 L MCV 101.0 H MCH 34.7 H MCHC 34.4 RDW 15.4 H Plt Count 204 Neut % (Auto) 79.1 H Lymph % (Auto) 13.4 L [place] % (Auto) 5.9 Eos % (Auto) 1.1 L Baso % (Auto) 0.5 Neut # (Auto) 90246 H Lymph # (Auto) 2000 [place] # (Auto) 900 Eos # (Auto) 200 Baso # (Auto) 100 Sodium 134 L Potassium 3.6 Chloride 104 Carbon Dioxide 22 BUN 5 L Creatinine 0.40 L Estimated GFR > 60.0 BUN/Creatinine Ratio 12.5 Glucose 87 Calcium 8.6 Total Bilirubin 0.5 AST 18 ALT 20 Alkaline Phosphatase 74 Total Protein 6.0 L Albumin 3.3 L Globulin 2.7 Albumin/Globulin Ratio 1.2 Urine Color Yellow Urine Appearance Clear Urine pH 7.0 Ur Specific [place] <=1.005 Urine Protein Negative Urine Glucose (UA) Negative Urine Ketones Negative Urine Occult Blood Negative Urine Nitrate Negative Urine Bilirubin Negative Urine Urobilinogen 0.2 Ur Leukocyte Esterase Negative Urine RBC None seen Urine WBC 1-5/hpf Ur Squamous Epith Cells 0-1 /hpf Urine Bacteria Occasional (0-1) D Ur Culture Indicated? Cult not indicated Diagnosis, Plan/Disposition Final Diagnosis (1) uterine contractions in third trimester, antepartum: Current Visit: No Status: Acute Problem details: Patient was given terbutaline with good effect; contractions slowed down and variables decreased in intensity. Amnisure followed by fibronectin negative. STD testing negative. She was administered betamethasone x1 prior to discharge and will return tomorrow for her second dose. (2) Candidiasis of genitalia in female: Current Visit: No Status: Acute Problem details: 1. Will administer Monistat in the outpatient setting. (3) Tobacco use affecting in third trimester, antepartum: Current Visit: No Status: Acute Problem details: 1. Advised smoking cessation. (4) History of labor: Current Visit: No Status: Acute Problem details: 1. Repeat betamethasone in 24 hours. 2. fibronectin, ultrasound, and cervical exam reassuring. Will watch closely. Plan/Disposition Plan: 1. As above. 2. Follow up as scheduled later today. 3. Return promptly with worsening uterine contractions, decreased movement, rupture membranes, vaginal bleeding, fever, or any other concerns. OB Disposition: home
[2018-12-25 08:28] LABS: Fetal Fibronectin Negative
[2018-12-25 08:55] LABS: Urine N gonorrhoeae NOT DETECTED
[2018-12-25 08:56] LABS: Urine Chlamydia NOT DETECTED
[2018-12-25 11:05] LABS: Urine Amphetamines Negative (Negative); Urine Cocaine Negative (Negative); Urine Morphine/Opi cutoff 2000 Negative (Negative); Urine Tetrahydrocannabinol Negative (Negative)
[2018-12-25 11:06] LABS: Urine Barbiturates Negative (Negative); Urine Benzodiazepines Negative (Negative); Urine MDMA Negative (Negative); Urine Methadone Negative (Negative); Urine Methamphetamines Negative (Negative); Urine Oxycodone Negative (Negative); Urine Phencyclidine Negative (Negative); Urine Tricyclic Antidepressant Negative (Negative)
== END 2018-12-25 09:45 | disposition home or self-care (01) ==
PROVIDERS: Admitting Provider Obstetrics & Gynecology; PCP Student in an Organized Health Care Education/Training Program; Visit Provider Obstetrics & Gynecology
DX: O47.03 False labor before 37 completed weeks of gestation, third trimester (principal); O99.333 Smoking (tobacco) complicating pregnancy, third trimester; B37.3 Candidiasis of vulva and vagina; Z3A.28 28 weeks gestation of pregnancy
CPT/HCPCS: 36415; 76815; 80053; 80305; 81001; 82731; 85025; 87491; 87591; G0378; G0379; J0702

== ENCOUNTER 2018-12-26 09:12 | Outpatient (CLI) | payer OTHER, MEDICAID, SELFPAY ==
[2018-12-26] MEDS: BETAMETHASONE 30 MG/5 ML MDV 12 MG IM (09:30)
== END 2018-12-26 10:30 | disposition home or self-care (01) ==
LOC: LABOR 09:22 → OB 01-13 15:33
PROVIDERS: PCP Student in an Organized Health Care Education/Training Program; Visit Provider Student in an Organized Health Care Education/Training Program
DX: O09.523 Supervision of elderly multigravida, third trimester (principal); Z3A.35 35 weeks gestation of pregnancy; O99.333 Smoking (tobacco) complicating pregnancy, third trimester
CPT/HCPCS: 59025; 96372; G0378; G0379; J0702

== ENCOUNTER → 2019-01-08 16:21 | Outpatient (CLI) | payer OTHER, MEDICAID, SELFPAY ==
[2019-01-08 18:36] LABS: GTT (PREG) 1 Hour PP 50gm Dose 179 mg/dL (76-139)
== END ==
PROVIDERS: PCP Student in an Organized Health Care Education/Training Program; Visit Provider Student in an Organized Health Care Education/Training Program
DX: Z33.1 Pregnant state, incidental (principal)
CPT/HCPCS: 36415; 82950

== ENCOUNTER 2019-01-14 11:25 | Outpatient (CLI) | payer OTHER, MEDICAID, SELFPAY | END 2019-01-14 12:34 | disposition home or self-care (01) | LOC: LABOR 12:34 → OB 01-16 09:07 | PROVIDERS: PCP Student in an Organized Health Care Education/Training Program; Visit Provider Student in an Organized Health Care Education/Training Program | DX: O09.523 Supervision of elderly multigravida, third trimester (principal); O99.333 Smoking (tobacco) complicating pregnancy, third trimester; Z3A.36 36 weeks gestation of pregnancy | CPT/HCPCS: 59025; G0378; G0379 ==

== ENCOUNTER → 2019-01-16 10:54 | Outpatient (CLI) | payer OTHER, MEDICAID, SELFPAY ==
--- NOTE | 2019-01-16 | DI.US.S_ITS ---
PROCEDURE: US OB LIMITED INDICATIONS: ADVANCED MATERNAL AGE OUTSIDE/PRIOR DATING DATA: Last menstrual period (LMP): 04/30/18. LMP-based estimated date of delivery (JHONNY): 02/04/19. First dating scan (date and location): 11/29/18, [facility] Estimated date of delivery (JHONNY) from first dating scan: 03/14/19. TECHNIQUE: Real-time scanning was performed of the fetus, with image documentation and biometric measurements. Endovaginal scanning: No COMPARISON: [facility], , US PELVIC COMPLETE WITH TRANSVAGINAL, 09/05/2017, 1:31. [facility], ABDOMEN COMPLETE, 03/19/2017, 8:36. [facility], OB >= 14 WEEKS FETUS, 11/29/2018, 14:45. [facility], OB LIMITED, 12/25/2018, 6:46. FINDINGS: General: A single intrauterine gestation is present. Presentation: Breech. Placenta: Placental position is anterior, without ultrasound evidence of previa. Amniotic fluid index: 17.9 cm, normal range is 5-24 cm. heart rate: 149 beats per minute. Maternal cervical canal: 3.5 cm long. Normal lower limit is 2.5 cm. Estimated gestational age from initial scan: 31 weeks 6 days IMPRESSION: Single intrauterine gestation/ in breech presentation with heart rate of 149 beats per minute and amniotic fluid index of 17.9 cm. Dictated by: Chava Oscar [facility] Interpreted: Luis Abrams MD on 01/16/2019 at 13:00 Approved by: Luis Abrams M.D. on 01/16/2019 at 15:00
== END ==
PROVIDERS: PCP Student in an Organized Health Care Education/Training Program; Visit Provider Student in an Organized Health Care Education/Training Program
DX: O09.00 Supervision of pregnancy with history of infertility, unspecified trimester (principal)
CPT/HCPCS: 76815

== ENCOUNTER 2019-01-16 11:46 | Outpatient (CLI) | payer OTHER, MEDICAID, SELFPAY | END 2019-01-16 12:45 | disposition home or self-care (01) | LOC: OB 01-21 13:43 | PROVIDERS: PCP Student in an Organized Health Care Education/Training Program; Visit Provider Student in an Organized Health Care Education/Training Program | DX: O09.523 Supervision of elderly multigravida, third trimester (principal); O99.333 Smoking (tobacco) complicating pregnancy, third trimester; Z3A.36 36 weeks gestation of pregnancy; O09.00 Supervision of pregnancy with history of infertility, unspecified trimester | CPT/HCPCS: 59025; 76815; G0378; G0379 ==

== ENCOUNTER 2019-01-20 01:50 | Observation (INO) | payer OTHER, MEDICAID, SELFPAY ==
[2019-01-20 03:05] LABS: Bacteria Urine None Seen; RBC Urine None Seen (0-5/HPF); WBC Urine None Seen (0-5/HPF)
[2019-01-20 03:07] LABS: Appearance Urine UA CLEAR; Bilirubin Urine UA NEGATIVE (NEGATIVE); Color Urine UA YELLOW; Glucose Urine UA NEGATIVE (Negative); Ketones Urine UA NEGATIVE (NEGATIVE); Leukocyte Esterase Urine UA NEGATIVE (NEGATIVE); Nitrite Urine UA NEGATIVE (Negative); Occult Blood Urine UA NEGATIVE (Negative); Protein Urine UA NEGATIVE (Negative); Specific Gravity Urine UA <=1.005 (1.000-1.035); Urobilinogen Urine UA 0.2 E.U./dL (0.2)
[2019-01-20 03:14] LABS: Culture Indicated Urine Cult Not Indicated; Squamous Epithelial Cell Urine 0-1 /HPF (0-5/HPF); Urine Comments Microscopic Normal
[2019-01-20] MEDS: ONDANSETRON 4 MG/2 ML INJ IV (03:28)
[2019-01-20] MEDS: ACETAMINOPHEN 325 MG TABLET 1000 MG PO (03:50)
[2019-01-20] MEDS: hydrOXYzine pamoate 25 MG CAPSULE 50 MG PO (03:52)
== END 2019-01-20 04:20 | disposition home or self-care (01) ==
PROVIDERS: Admitting Provider Student in an Organized Health Care Education/Training Program; PCP Student in an Organized Health Care Education/Training Program; Visit Provider Student in an Organized Health Care Education/Training Program
DX: O09.523 Supervision of elderly multigravida, third trimester (principal); O26.23 Pregnancy care for patient with recurrent pregnancy loss, third trimester; O99.333 Smoking (tobacco) complicating pregnancy, third trimester; Z3A.32 32 weeks gestation of pregnancy
CPT/HCPCS: 59025; 59050; 81001; 96360; G0378; G0379; J2405

== ENCOUNTER → 2019-01-23 11:06 | Outpatient (CLI) | payer OTHER, MEDICAID, SELFPAY ==
--- NOTE | 2019-01-23 | DI.US.S_ITS ---
PROCEDURE: US OB LIMITED INDICATIONS: SUPERVISION OF HIGH RISK . Advanced maternal age. OUTSIDE/PRIOR DATING DATA: Last menstrual period (LMP): 04/30/2018. LMP-based estimated date of delivery (JHONNY): 02/04/2019. First dating scan (date and location): 11/29/2018. Estimated date of delivery (JHONNY) from first dating scan: 03/14/2019. TECHNIQUE: Real-time scanning was performed of the fetus, with image documentation and biometric measurements. COMPARISON: [facility], OB LIMITED, 01/16/2019, 11:10. FINDINGS: General: A single living intrauterine gestation is present. Presentation: Vertex. Placenta: Placental position is anterior, without previa. Amniotic fluid index: 24.7 cm. heart rate: 130 beats per minute. Maternal cervical canal: 4 cm long. Normal lower limit is 2.5 cm. Estimated gestational age from initial scan: 32 weeks 6/7 days. Measurement variability for biometric dating: +/- 7 days from 14 weeks to 15 weeks 6 days gestation, +/- 10 days from 16 weeks to 21 weeks 6 days gestation, +/- 2 weeks from 22 weeks to 27 weeks 6 days gestation, +/- 3 weeks for 28 weeks gestation or later. weight reference: 4500 g or EFW >90/95% is considered macrosomia or large for gestational age. EFW <10% is small for gestational age. EFW 5% or less is considered intra-uterine growth restriction. IMPRESSION: 1. Coffey living intrauterine at 32 weeks 6/7 days based on first trimester ultrasound. 2. Normal placenta. EDGAR 24.7 cm, (previously 17.9 cm). Maximum pocket depth of 8.5 cm. Mild polyhydramnios. Dictated by: Ollie Stauffer M.D. on 01/23/2019 at 12:19 Approved by: Ollie Stauffer M.D. on 01/23/2019 at 12:26
== END ==
PROVIDERS: PCP Student in an Organized Health Care Education/Training Program; Visit Provider Student in an Organized Health Care Education/Training Program
DX: O09.893 Supervision of other high risk pregnancies, third trimester (principal); O40.3XX0 Polyhydramnios, third trimester, not applicable or unspecified; Z3A.32 32 weeks gestation of pregnancy
CPT/HCPCS: 76815

== ENCOUNTER 2019-01-23 11:59 | Outpatient (CLI) | payer OTHER, MEDICAID, SELFPAY | END 2019-01-23 13:19 | disposition home or self-care (01) | LOC: LABOR 12:40 → OB 01-27 15:02 | PROVIDERS: PCP Student in an Organized Health Care Education/Training Program; Visit Provider Student in an Organized Health Care Education/Training Program | DX: O09.523 Supervision of elderly multigravida, third trimester (principal); O26.23 Pregnancy care for patient with recurrent pregnancy loss, third trimester; O99.333 Smoking (tobacco) complicating pregnancy, third trimester; Z3A.33 33 weeks gestation of pregnancy | CPT/HCPCS: 59025; 76815; G0378; G0379 ==

== ENCOUNTER 2019-01-27 12:06 | Outpatient (CLI) | payer OTHER, MEDICAID, SELFPAY | END 2019-01-27 12:58 | disposition home or self-care (01) | LOC: LABOR 12:15 → OB 01-28 08:59 | PROVIDERS: PCP Student in an Organized Health Care Education/Training Program; Visit Provider Student in an Organized Health Care Education/Training Program | DX: O26.23 Pregnancy care for patient with recurrent pregnancy loss, third trimester (principal); O09.523 Supervision of elderly multigravida, third trimester; O99.333 Smoking (tobacco) complicating pregnancy, third trimester; Z3A.33 33 weeks gestation of pregnancy | CPT/HCPCS: 59025; G0378; G0379 ==

== ENCOUNTER 2019-01-30 10:52 | Outpatient (CLI) | payer OTHER, MEDICAID, SELFPAY ==
--- NOTE | 2019-01-30 | DI.US.S_ITS ---
PROCEDURE: US OB LIMITED INDICATIONS: SUPERVISION OF HIGH RISK OUTSIDE/PRIOR DATING DATA: Last menstrual period (LMP): 04/30/2018. LMP-based estimated date of delivery (JHONNY): 02/04/2019. First dating scan (date and location): 11/29/2018. Estimated date of delivery (JHONNY) from first dating scan: 03/14/2019. TECHNIQUE: Real-time scanning was performed of the fetus, with image documentation and biometric measurements. Endovaginal scanning: No COMPARISON: [facility], OB LIMITED, 01/23/2019, 11:23. FINDINGS: General: A single living intrauterine gestation is present. Presentation: Transverse. Placenta: Placental position is anterior, without previa. Amniotic fluid index: 28.8 cm, normal range is 5-24 cm. heart rate: 127 beats per minute. Maternal cervical canal: 3.1 cm long. Normal lower limit is 2.5 cm. Expected age based on prior ultrasound is 31 weeks 6 days. IMPRESSION: Single living IUP redemonstrated and polyhydramnios is present. Dictated by: Chava Oscar [facility] Interpreted: Erica Russ MD on 01/30/2019 at 14:09 Approved by: Erica Russ M.D. on 01/30/2019 at 17:38
== END 2019-01-30 13:15 | disposition home or self-care (01) ==
LOC: US 10:53 → LABOR 13:07
PROVIDERS: PCP Student in an Organized Health Care Education/Training Program; Visit Provider Student in an Organized Health Care Education/Training Program
DX: O09.93 Supervision of high risk pregnancy, unspecified, third trimester (principal); Z3A.31 31 weeks gestation of pregnancy
CPT/HCPCS: 59025; 59050; 76815; G0378

== ENCOUNTER 2019-02-01 20:38 | Observation (INO) | payer OTHER, MEDICAID, SELFPAY ==
[2019-02-01] MEDS: LACTATED RINGERS 1,000 ML 1000 ML IV (21:30)
[2019-02-01] MEDS: NIFEdipine 10 MG CAPSULE PO ×4 (21:59→22:58)
[2019-02-01 22:04] LABS: Appearance Urine UA CLEAR; Bilirubin Urine UA NEGATIVE (NEGATIVE); Color Urine UA YELLOW; Glucose Urine UA NEGATIVE (Negative); Ketones Urine UA TRACE (NEGATIVE); Leukocyte Esterase Urine UA NEGATIVE (NEGATIVE); Nitrite Urine UA NEGATIVE (Negative); Occult Blood Urine UA NEGATIVE (Negative); Protein Urine UA NEGATIVE (Negative); Specific Gravity Urine UA <=1.005 (1.000-1.035); Urobilinogen Urine UA 0.2 E.U./dL (0.2)
[2019-02-01 22:20] LABS: Fetal Fibronectin Negative
[2019-02-01 22:52] LABS: Strep Grp B PCR POS for Grp B Strep
[2019-02-01] MEDS: TERBUTALINE 1 MG/ML VIAL 0.25 MG SUBCUT (23:30)
[2019-02-01] MEDS: NIFEdipine 30 MG TAB ER PO (23:34)
== END 2019-02-02 00:29 | disposition home or self-care (01) ==
PROVIDERS: Family Medicine; Admitting Provider Student in an Organized Health Care Education/Training Program; PCP Student in an Organized Health Care Education/Training Program; Visit Provider Student in an Organized Health Care Education/Training Program
DX: O47.03 False labor before 37 completed weeks of gestation, third trimester (principal); O09.523 Supervision of elderly multigravida, third trimester; O26.23 Pregnancy care for patient with recurrent pregnancy loss, third trimester; O99.333 Smoking (tobacco) complicating pregnancy, third trimester; Z3A.34 34 weeks gestation of pregnancy
CPT/HCPCS: 59025; 59050; 81003; 82731; 87653; 96360; 96372; G0378; G0379

== ENCOUNTER 2019-02-03 12:27 | Outpatient (CLI) | payer OTHER, MEDICAID, SELFPAY | END 2019-02-03 13:20 | disposition home or self-care (01) | LOC: LABOR 12:42 → OB 02-04 16:30 | PROVIDERS: PCP Student in an Organized Health Care Education/Training Program; Visit Provider Student in an Organized Health Care Education/Training Program | DX: O09.523 Supervision of elderly multigravida, third trimester (principal); O26.23 Pregnancy care for patient with recurrent pregnancy loss, third trimester; O99.333 Smoking (tobacco) complicating pregnancy, third trimester; Z3A.34 34 weeks gestation of pregnancy | CPT/HCPCS: 59025; G0378; G0379 ==

== ENCOUNTER → 2019-02-06 10:46 | Outpatient (CLI) | payer OTHER, MEDICAID, SELFPAY ==
--- NOTE | 2019-02-06 | DI.US.S_ITS ---
PROCEDURE: US OB LIMITED INDICATIONS: SUPERVISION OF HIGH RISK OUTSIDE/PRIOR DATING DATA: Last menstrual period (LMP): 04/30/2018. LMP-based estimated date of delivery (JHONNY): 02/04/2019. First dating scan (date and location): 11/29/2018. Estimated date of delivery (JHONNY) from first dating scan: 03/14/2019. TECHNIQUE: Real-time scanning was performed of the fetus, with image documentation and biometric measurements. Endovaginal scanning: No COMPARISON: [facility], OB LIMITED, 01/30/2019, 12:09. FINDINGS: General: A single living intrauterine gestation is present. Presentation: Vertex. Placenta: Placental position is anterior, without previa. Amniotic fluid index: 21.0 cm, normal range is 5-24 cm. heart rate: 128 beats per minute. Maternal cervical canal: 3.6 cm long. Normal lower limit is 2.5 cm. IMPRESSION: 1. Single living IUP redemonstrated. 2. Normal amniotic fluid index. Dictated by: Chava Oscar [facility] Interpreted: Donna Contreras MD on 02/06/2019 at 13:38 Approved by: Donna Contreras M.D. on 02/06/2019 at 14:01
== END ==
PROVIDERS: PCP Student in an Organized Health Care Education/Training Program; Visit Provider Student in an Organized Health Care Education/Training Program
DX: O09.70 Supervision of high risk pregnancy due to social problems, unspecified trimester (principal)
CPT/HCPCS: 76815

== ENCOUNTER 2019-02-06 11:41 | Outpatient (CLI) | payer OTHER, MEDICAID, SELFPAY | END 2019-02-06 12:36 | disposition home or self-care (01) | LOC: LABOR 11:49 → OB 02-10 10:14 | PROVIDERS: PCP Student in an Organized Health Care Education/Training Program; Visit Provider Obstetrics & Gynecology | DX: O09.523 Supervision of elderly multigravida, third trimester (principal); O26.23 Pregnancy care for patient with recurrent pregnancy loss, third trimester; O99.333 Smoking (tobacco) complicating pregnancy, third trimester; Z3A.34 34 weeks gestation of pregnancy | CPT/HCPCS: 59025; 76815; G0378; G0379 ==

== ENCOUNTER 2019-02-08 02:05 | Emergency (ER) | payer OTHER, MEDICAID, SELFPAY ==
[2019-02-08 02:20] VITALS: BP 107/54; PULSE 74; RESP 20; TEMP 37.2; O2SAT 99
[2019-02-08 02:24] VITALS: PULSE 74; RESP 20; TEMP 37.2; O2SAT 99
--- NOTE | 2019-02-08 02:33 | DI.RAD.S_ITS ---
PROCEDURE: XR KNEE LT 3V INDICATIONS: left knee pain after ground level fall TECHNIQUE: 3 views of the knee were acquired. COMPARISON: [facility], , KNEE 3V RIGHT, 07/26/2017, 22:03. FINDINGS: Bones: No fractures or dislocations. No suspicious bony lesions. Soft tissues: No joint effusion. No suspicious soft tissue calcifications. IMPRESSION: No visualized acute fracture or dislocation. However, if clinical concern and/or pain persist, short interval imaging followup in 7-10 days is recommended, as occult injury cannot be definitively excluded. Dictated by: Erica Russ M.D. on 02/08/2019 at 7:52 Approved by: Erica Russ M.D. on 02/08/2019 at 7:52
[2019-02-08] MEDS: ACETAMINOPHEN 325 MG TABLET 975 MG PO (02:37)
--- NOTE | 2019-02-08 03:06 | ED.LOWEXIN ---
HPI - Extremity Injury (Lower) General Chief Complaint: Extremity Injury, Lower Stated Complaint: fell on left knee, thinks it is infected Time Seen by Provider: 02/08/19 02:26 Source: patient Mode of arrival: Wheelchair Limitations: no limitations History of Present Illness HPI Narrative: Patient is a 38-year-old female who is currently 36 weeks presenting with left knee pain. She says yesterday she tripped and fell on a stair. She did twist and turn as to protect her abdomen and baby. She is worried that it is infected she does have a scab that seems to be healing there is no gross drainage or significant surrounding erythema. However she cannot weight bear. She has not taken anything for pain. No numbness or tingling. Pain is gotten significantly worse as time has gone on. No abdominal pain, no vaginal bleeding Related Data Home Medications Medication Instructions Recorded Confirmed diphenhydramine HCl 50 mg PO PRN PRN #0 03/26/16 01/20/19 [vitamins] 1 dose PO DAILY #0 12/29/16 01/20/19 albuterol sulfate [Ventolin HFA] 2 puff INH PRN PRN #0 12/29/16 01/20/19 acetaminophen [Tylenol Extra 500 mg PO PRN PRN 03/13/18 01/20/19 Strength] epinephrine 0.3 mg IM X1 PRN 03/13/18 01/20/19 Allergies Allergy/AdvReac Type Severity Reaction Status Date / Time almond [ALMOND] Allergy Unknown Verified 01/20/19 03:18 aspirin [ASPIRIN] Allergy Unknown Verified 01/20/19 03:18 egg [EGG] Allergy Unknown Verified 01/20/19 03:18 hazelnut [HAZELNUT] Allergy Unknown Verified 01/20/19 03:18 ibuprofen [IBUPROFEN] Allergy Unknown Verified 01/20/19 03:18 latex [LATEX] Allergy Unknown Verified 01/20/19 03:18 soy [SOY] Allergy Unknown Verified 01/20/19 03:18 tree nut [TREE NUT] Allergy Unknown Verified 01/20/19 03:18 hydrocodone [From Vicodin] Allergy Verified 01/20/19 03:18 diazepam [DIAZEPAM] AdvReac Unknown Verified 01/20/19 03:18 promethazine [PROMETHAZINE] AdvReac Unknown Verified 06/02/18 18:14 tetracycline [TETRACYCLINE] AdvReac Unknown Verified 06/02/18 18:14 Review of Systems Review of Systems Narrative: GENERAL: Denies chills,fever HEENT: Denies throat pain RESPIRATORY: Denies dyspnea, cough, wheezing CARDIOVASCULAR: Denies chest pain, palpitations GASTROINTESTINAL: Denies nausea, vomiting MUSCULOSKELETAL: See HPI SKIN: No rash, no laceration, no pruritus NEUROLOGIC: Denies weakness, dizziness, headache, numbness 8 point review of systems is negative except for those stated above and HPI Patient History Medical History Nut allergy (Acute) Surgical History History of tonsillectomy Status post delivery Social History Smoking Status: Current every day smoker alcohol intake frequency: a few times a week Substance Use Type: does not use Exam Initial Vital Signs Initial Vital Signs: Vital Signs Temperature 99 F 02/08/19 02:20 Pulse Rate 74 02/08/19 02:20 Respiratory Rate 20 02/08/19 02:20 Blood Pressure 107/54 L 02/08/19 02:20 Pulse Oximetry 99 02/08/19 02:20 GENERAL: Well-appearing, well-nourished and in no acute distress. CARDIOVASCULAR: peripheral pulses in tact, cap refill <2 sec RESPIRATORY: No respiratory distress, speaks in full sentences without difficulty ABDOMEN: gravid nontender Soft, nontender, no guarding or rebound EXTREMITIES: Normal range of motion, no clubbing or edema. Neurovascularly intact Left knee is stable minimal swelling. She does have a healing scab just inferior her patella. No significant surrounding erythema gross drainage. Patient is significantly tender posterior a knee more on the calf. NEUROLOGICAL: Cranial nerves II through XII grossly intact. Normal gait and speech. SKIN: Warm, dry, no petechiae, no rashes or lesions. Course Orders Ordered: ED Orders 02/08/19 02:33 XR knee LT 3V Stat Discontinued Medications Acetaminophen (Tylenol) 975 mg PO NOW ONE Stop: 02/08/19 02:34 Last Admin: 02/08/19 02:37 Dose: 975 mg Documented by: HENRI Vital Signs Vital signs: Vital Signs - 8 hr 02/08/19 02:20 02/08/19 02:24 Temperature 99 F 99 F Pulse Rate 74 74 Respiratory Rate 20 20 Blood Pressure [Right Arm] 107/54 L Pulse Oximetry 99 99 MDM - Extremity Injury (Lower) Imaging Data Left knee x-ray: Attestation: I personally reviewed and interpreted this imaging study as follows: My impression: No fracture Discharge Plan Departure Patient Disposition: Home Clinical Impression: Muscle strain of left knee Qualifiers: Encounter type: initial encounter Qualified Code(s): S86.912A - Strain of unspecified muscle(s) and tendon(s) at lower leg level, left leg, initial encounter Instructions: DI for Knee Sprain Activity Restrictions/Additional Instructions: *You have been diagnosed with left knee strain *What to do: Wear brace as needed while active use crutches if needed increase weight-bearing as tolerated. May require MRI if still having significant pain in a few weeks *Continue to take medications as directed Tylenol 975 mg every she 6 hours if needed for pain *Follow up with your primary care provider in 2-3 days *Return to ER if you should have increasing pain, worsening redness, fever or any new, worsening or concerning symptoms Prescriptions: No Action diphenhydramine HCl 50 MG capsule 50 mg PO PRN PRN (Reason: Allergy Symptoms) Qty: 0 RF: 0 albuterol sulfate [Ventolin HFA] 90 MCG/PUFF HFA aerosol inhaler 2 puff INH PRN PRN (Reason: Shortness Of Breath) Qty: 0 RF: 0 [vitamins] 1 dose PO DAILY Qty: 0 RF: 0 acetaminophen [Tylenol Extra Strength] 500 mg Tablet 500 mg PO PRN PRN (Reason: pain) RF: 0 epinephrine 0.3 MG/0.3 ML auto-injector 0.3 mg IM X1 PRN (Reason: Allergic Reaction) RF: 0 Referrals: Melissa Stubbs MD [Primary Care Provider] -
[2019-02-08 03:40] VITALS: BP 100/48; PULSE 68; RESP 18; O2SAT 99
== END 2019-02-08 03:40 | disposition home or self-care (01) ==
PROVIDERS: Emergency Provider Emergency Medicine; PCP Student in an Organized Health Care Education/Training Program
DX: S86.912A Strain of unspecified muscle(s) and tendon(s) at lower leg level, left leg, initial encounter (principal); W10.9XXA Fall (on) (from) unspecified stairs and steps, initial encounter
CPT/HCPCS: 73562; 99283

== ENCOUNTER 2019-02-09 04:54 | Observation (INO) | payer OTHER, MEDICAID, SELFPAY ==
[2019-02-09 06:03] LABS: Aspartate Aminotransferase 19 IU/L (14-36); BUN Creatinine Ratio 7.5 (6-22); Blood Urea Nitrogen 3 mg/dL (7-17); Estimated Glomerular Filt Rate > 60.0 mL/min (>60); Uric Acid 2.6 mg/dL (2.5-6.2)
[2019-02-09 06:09] LABS: Add Manual Diff / Slide Review NO; Basophils Absolute Auto 0 /uL (0-100); Basophils Percent Auto 0.1 % (0-2); Eosinophils Absolute Auto 100 /uL (0-450); Eosinophils Percent Auto 0.5 % (2-4); Hematocrit 29.8 % (36-46); Hemoglobin 10.7 g/dL (12.0-16.0); Lymphocytes Absolute Auto 1600 /uL (1100-4500); Lymphocytes Percent Auto 10.9 % (25-40); Mean Corpuscular Hemoglobin 35.6 PG (26-34); Mean Corpuscular Volume 98.8 fL (80-100); Monocytes Absolute Auto 900 /uL (0-900); Monocytes Percent Auto 6.3 % (3-14); Neutrophils Absolute Auto 11800 /uL (1500-7000); Neutrophils Percent Auto 82.2 % (50-75); Platelet Count 183 X10^3/uL (150-400); Red Blood Cell Count 3.01 X10^6/uL (4.0-5.2); Red Cell Distribution Width 15.3 % (11.6-14.8); White Blood Cell Count 14.4 X10^3/uL (4.5-11.0)
[2019-02-09] MEDS: NIFEdipine 10 MG CAPSULE PO ×4 (06:23→07:24)
== END 2019-02-09 07:50 | disposition home or self-care (01) ==
LOC: LABOR 04:58
PROVIDERS: Admitting Provider Obstetrics & Gynecology; PCP Student in an Organized Health Care Education/Training Program; Visit Provider Obstetrics & Gynecology
DX: O12.03 Gestational edema, third trimester (principal); O09.523 Supervision of elderly multigravida, third trimester; O26.23 Pregnancy care for patient with recurrent pregnancy loss, third trimester; O99.333 Smoking (tobacco) complicating pregnancy, third trimester; Z3A.35 35 weeks gestation of pregnancy; O26.893 Other specified pregnancy related conditions, third trimester; G43.909 Migraine, unspecified, not intractable, without status migrainosus; R10.13 Epigastric pain
CPT/HCPCS: 36415; 59025; 59050; 84450; 84550; 85025; G0378; G0379

== ENCOUNTER 2019-02-10 17:00 | Outpatient (CLI) | payer OTHER, MEDICAID, SELFPAY | END 2019-02-10 18:00 | disposition home or self-care (01) | LOC: OB 02-13 09:00 | PROVIDERS: PCP Student in an Organized Health Care Education/Training Program; Visit Provider Student in an Organized Health Care Education/Training Program | DX: O26.23 Pregnancy care for patient with recurrent pregnancy loss, third trimester (principal); O09.523 Supervision of elderly multigravida, third trimester; O99.333 Smoking (tobacco) complicating pregnancy, third trimester; Z3A.35 35 weeks gestation of pregnancy | CPT/HCPCS: 59025; G0378; G0379 ==

== ENCOUNTER 2019-02-13 12:27 | Outpatient (CLI) | payer OTHER, MEDICAID, SELFPAY | END 2019-02-13 13:34 | disposition home or self-care (01) | LOC: LABOR 12:40 → OB 02-14 13:53 | PROVIDERS: PCP Student in an Organized Health Care Education/Training Program; Visit Provider Student in an Organized Health Care Education/Training Program | DX: O09.523 Supervision of elderly multigravida, third trimester (principal); O26.23 Pregnancy care for patient with recurrent pregnancy loss, third trimester; O99.333 Smoking (tobacco) complicating pregnancy, third trimester; Z3A.35 35 weeks gestation of pregnancy | CPT/HCPCS: 59025; G0378; G0379 ==

== ENCOUNTER → 2019-02-17 12:08 | Outpatient (CLI) | payer OTHER, MEDICAID, SELFPAY ==
--- NOTE | 2019-02-17 | DI.US.S_ITS ---
PROCEDURE: US OB LIMITED INDICATIONS: HIGH RISK , INTERVAL GROWTH OUTSIDE/PRIOR DATING DATA: Last menstrual period (LMP): 04/30/2018. LMP-based estimated date of delivery (JHONNY): 02/04/2019. First dating scan (date and location): 11/29/2018. Estimated date of delivery (JHONNY) from first dating scan: 03/14/2019. TECHNIQUE: Real-time scanning was performed of the fetus, with image documentation and biometric measurements. Endovaginal scanning: No COMPARISON: [facility], OB LIMITED, 02/06/2019, 11:11. FINDINGS: General: A single living intrauterine gestation is present. Presentation: Vertex. Placenta: Placental position is anterior, without previa. Amniotic fluid index: 20.2 cm, normal range is 5-24 cm. heart rate: 122 beats per minute. Maternal cervical canal: 3.8 cm long. Normal lower limit is 2.5 cm. biometrics: Biparietal diameter: 36 weeks 4 days Head circumference: 37 weeks 2 days Abdominal circumference: 36 weeks 1 day Femur length: 33 weeks 3 days Estimated gestational age from initial scan: 36 weeks 3 days Composite gestational age from present scan: 35 weeks 6 days Estimated weight and percentile: 2732 g; 32nd percentile Measurement variability for biometric dating: +/- 7 days from 14 weeks to 15 weeks 6 days gestation, +/- 10 days from 16 weeks to 21 weeks 6 days gestation, +/- 2 weeks from 22 weeks to 27 weeks 6 days gestation, +/- 3 weeks for 28 weeks gestation or later. weight reference: 4500 g or EFW >90/95% is considered macrosomia or large for gestational age. EFW <10% is small for gestational age. EFW 5% or less is considered intra-uterine growth restriction. Other: Not applicable. IMPRESSION: 1. Single living IUP redemonstrated and interval growth is normal. Dictated by: Chava KAPADIA Interpreted: Erica Russ MD on 02/17/2019 at 14:03 Approved by: Erica Russ M.D. on 02/17/2019 at 14:35
== END ==
PROVIDERS: PCP Student in an Organized Health Care Education/Training Program; Visit Provider Student in an Organized Health Care Education/Training Program
DX: O09.93 Supervision of high risk pregnancy, unspecified, third trimester (principal); Z3A.35 35 weeks gestation of pregnancy
CPT/HCPCS: 76815

== ENCOUNTER 2019-02-17 12:16 | Outpatient (CLI) | payer OTHER, MEDICAID, SELFPAY | END 2019-02-17 14:13 | disposition home or self-care (01) | LOC: LABOR 14:02 → OB 02-19 10:47 | PROVIDERS: PCP Student in an Organized Health Care Education/Training Program; Visit Provider Student in an Organized Health Care Education/Training Program | DX: O26.23 Pregnancy care for patient with recurrent pregnancy loss, third trimester (principal); O09.523 Supervision of elderly multigravida, third trimester; O99.333 Smoking (tobacco) complicating pregnancy, third trimester; Z3A.36 36 weeks gestation of pregnancy | CPT/HCPCS: 59025; 76815; G0378; G0379 ==

== ENCOUNTER → 2019-02-20 10:57 | Outpatient (CLI) | payer OTHER, MEDICAID, SELFPAY ==
--- NOTE | 2019-02-20 | DI.US.S_ITS ---
PROCEDURE: US OB LIMITED INDICATIONS: SUPERVISION OF HIGH RISK PREGNANCYY, CHECK INTERVAL GROWTH OUTSIDE/PRIOR DATING DATA: Last menstrual period (LMP): 04/30/2018. LMP-based estimated date of delivery (JHONNY): 02/04/2019. First dating scan (date and location): 11/29/2018. Estimated date of delivery (JHONNY) from first dating scan: 03/14/2019. TECHNIQUE: Real-time scanning was performed of the fetus, with image documentation and biometric measurements. Endovaginal scanning: No COMPARISON: [facility], OB LIMITED, 02/17/2019, 13:28. FINDINGS: General: A single living intrauterine gestation is present. Presentation: Vertex. Placenta: Placental position is anterior, without previa. Amniotic fluid index: 14.8 cm, normal range is 5-24 cm. heart rate: 158 beats per minute. Maternal cervical canal: 3.9 cm long. Normal lower limit is 2.5 cm. biometrics: Biparietal diameter: 36 weeks 3 days Head circumference: 35 weeks 3 days Abdominal circumference: 37 weeks 5 days Femur length: 33 weeks 1 day Estimated gestational age from initial scan: 36 weeks 6 days Composite gestational age from present scan: 36 weeks 5 days Estimated weight and percentile: 3009 g; 51st percentile Measurement variability for biometric dating: +/- 7 days from 14 weeks to 15 weeks 6 days gestation, +/- 10 days from 16 weeks to 21 weeks 6 days gestation, +/- 2 weeks from 22 weeks to 27 weeks 6 days gestation, +/- 3 weeks for 28 weeks gestation or later. weight reference: 4500 g or EFW >90/95% is considered macrosomia or large for gestational age. EFW <10% is small for gestational age. EFW 5% or less is considered intra-uterine growth restriction. Other: Not applicable. IMPRESSION: 1. Single living IUP redemonstrated and interval growth is normal. Of note, the femoral length is less than the 5th percentile for age. Dictated by: Chava Oscar [facility] Interpreted: Elizabeth Mayen MD on 02/20/2019 at 13:06 Approved by: Elizabeth Mayen MD, PhD on 02/20/2019 at 15:20
== END ==
PROVIDERS: PCP Student in an Organized Health Care Education/Training Program; Visit Provider Student in an Organized Health Care Education/Training Program
DX: O09.93 Supervision of high risk pregnancy, unspecified, third trimester (principal); Z3A.36 36 weeks gestation of pregnancy
CPT/HCPCS: 76815

== ENCOUNTER 2019-02-20 11:54 | Outpatient (CLI) | payer OTHER, MEDICAID, SELFPAY | END 2019-02-20 13:10 | disposition home or self-care (01) | LOC: LABOR 13:14 → OB 16:27 | PROVIDERS: PCP Student in an Organized Health Care Education/Training Program; Visit Provider Student in an Organized Health Care Education/Training Program | DX: O26.23 Pregnancy care for patient with recurrent pregnancy loss, third trimester (principal); O09.523 Supervision of elderly multigravida, third trimester; O99.333 Smoking (tobacco) complicating pregnancy, third trimester; Z3A.37 37 weeks gestation of pregnancy | CPT/HCPCS: 59025; 76815; G0378; G0379 ==

== ENCOUNTER → 2019-02-21 10:27 | Outpatient (ROUT) | payer OTHER, MEDICAID, SELFPAY | PROVIDERS: PCP Student in an Organized Health Care Education/Training Program; Visit Provider Student in an Organized Health Care Education/Training Program | DX: O09.91 Supervision of high risk pregnancy, unspecified, first trimester (principal); Z86.19 Personal history of other infectious and parasitic diseases | CPT/HCPCS: 87081 ==

== ENCOUNTER 2019-02-24 12:21 | Outpatient (CLI) | payer OTHER, MEDICAID, SELFPAY ==
[2019-02-24 13:55] LABS: Appearance Urine UA CLEAR; Bilirubin Urine UA NEGATIVE (NEGATIVE); Color Urine UA YELLOW; Glucose Urine UA NEGATIVE (Negative); Ketones Urine UA NEGATIVE (NEGATIVE); Leukocyte Esterase Urine UA NEGATIVE (NEGATIVE); Nitrite Urine UA NEGATIVE (Negative); Occult Blood Urine UA NEGATIVE (Negative); Protein Urine UA NEGATIVE (Negative); Specific Gravity Urine UA <=1.005 (1.000-1.035); Urobilinogen Urine UA 0.2 E.U./dL (0.2)
[2019-02-24 13:59] LABS: pH Urine UA 7.5 (4.5-8.0)
== END 2019-02-24 14:06 | disposition home or self-care (01) ==
LOC: LABOR 14:06 → OB 02-26 16:16
PROVIDERS: PCP Student in an Organized Health Care Education/Training Program; Visit Provider Student in an Organized Health Care Education/Training Program
DX: O09.523 Supervision of elderly multigravida, third trimester (principal); O26.23 Pregnancy care for patient with recurrent pregnancy loss, third trimester; O99.333 Smoking (tobacco) complicating pregnancy, third trimester; Z3A.37 37 weeks gestation of pregnancy
CPT/HCPCS: 59025; 59050; 81003; G0378; G0379

== ENCOUNTER 2019-02-26 14:37 | Observation (INO) | payer OTHER, MEDICAID, SELFPAY | END 2019-02-26 16:50 | disposition home or self-care (01) | PROVIDERS: Admitting Provider Student in an Organized Health Care Education/Training Program; PCP Student in an Organized Health Care Education/Training Program; Visit Provider Student in an Organized Health Care Education/Training Program | DX: O26.23 Pregnancy care for patient with recurrent pregnancy loss, third trimester (principal); O99.333 Smoking (tobacco) complicating pregnancy, third trimester; Z3A.37 37 weeks gestation of pregnancy; O09.523 Supervision of elderly multigravida, third trimester; R11.0 Nausea | CPT/HCPCS: 59025; 59050; 84112; G0378; G0379 ==

== ENCOUNTER → 2019-02-27 11:43 | Outpatient (CLI) | payer OTHER, MEDICAID, SELFPAY ==
--- NOTE | 2019-02-27 | DI.US.S_ITS ---
PROCEDURE: US OB LIMITED INDICATIONS: SUPERVISION OF HIGH RISK , CHECK INTERVAL GROWTH OUTSIDE/PRIOR DATING DATA: Last menstrual period (LMP): 04/30/2018. LMP-based estimated date of delivery (JHONNY): 02/04/2019. First dating scan (date and location): 11/29/2018. Estimated date of delivery (JHONNY) from first dating scan: 03/14/2019. TECHNIQUE: Real-time scanning was performed of the fetus, with image documentation. Endovaginal scanning: Multiple 4 and COMPARISON: [facility], OB LIMITED, 01/16/2019, 11:10. [facility] OB LIMITED, 12/25/2018, 6:46. [facility] OB LIMITED, 01/23/2019, 11:23. [facility] OB LIMITED, 01/30/2019, 12:09. [facility] OB LIMITED, 02/06/2019, 11:11. [facility] OB LIMITED, 02/20/2019, 11:09. [facility] OB LIMITED, 02/17/2019, 13:28. FINDINGS: A single living intrauterine gestation is present. Presentation: Vertex. Placenta: Placental position is anterior, without previa. Amniotic fluid index: 17.3 cm, normal range is 5-24 cm. heart rate: 143 beats per minute. Maternal cervical canal: C1 to cm long. Normal lower limit is 2.5 cm. biometrics BPD: 37 weeks 6 days HC: 39 weeks 3 days AC: 38 weeks 1 day FL: 34 weeks 4 days Composite gestational age based on the current scan: 37 weeks 4 days Estimated gestational age from initial scan: 37 weeks 6 days. Estimated weight is 3196 gm; 49% for gestation age IMPRESSION: 1. A single living intrauterine gestation with appropriate interval growth. 2. AFL 17.3 cm. 3. Femur length is [place] 1% for gestation age (previously 2%). Dictated by: Donna Contreras M.D. on 02/27/2019 at 15:27 Approved by: Donna Contreras M.D. on 02/27/2019 at 15:37
== END ==
PROVIDERS: PCP Student in an Organized Health Care Education/Training Program; Visit Provider Student in an Organized Health Care Education/Training Program
DX: O09.93 Supervision of high risk pregnancy, unspecified, third trimester (principal); Z3A.37 37 weeks gestation of pregnancy
CPT/HCPCS: 76815

== ENCOUNTER 2019-02-27 12:56 | Outpatient (CLI) | payer OTHER, MEDICAID, SELFPAY ==
[2019-02-27 14:15] VITALS: BP 109/54
== END 2019-02-27 13:50 | disposition home or self-care (01) ==
LOC: LABOR 12:59 → OB 02-28 10:23
PROVIDERS: PCP Student in an Organized Health Care Education/Training Program; Visit Provider Student in an Organized Health Care Education/Training Program
DX: O09.523 Supervision of elderly multigravida, third trimester (principal); O26.23 Pregnancy care for patient with recurrent pregnancy loss, third trimester; O99.333 Smoking (tobacco) complicating pregnancy, third trimester; Z3A.37 37 weeks gestation of pregnancy
CPT/HCPCS: 59025; 76815; G0378; G0379

== ENCOUNTER → 2019-03-06 10:31 | Outpatient (CLI) | payer OTHER, MEDICAID, SELFPAY ==
[2019-03-06 11:07] LABS: Add Manual Diff / Slide Review NO; Basophils Absolute Auto 0 /uL (0-100); Basophils Percent Auto 0.4 % (0-2); Eosinophils Absolute Auto 100 /uL (0-450); Eosinophils Percent Auto 1.1 % (2-4); Hematocrit 33.8 % (36-46); Hemoglobin 11.9 g/dL (12.0-16.0); Lymphocytes Absolute Auto 1400 /uL (1100-4500); Lymphocytes Percent Auto 12.1 % (25-40); Mean Corpuscular HGB Conc 35.2 % (30-36); Mean Corpuscular Hemoglobin 35.2 PG (26-34); Mean Corpuscular Volume 99.9 fL (80-100); Monocytes Absolute Auto 900 /uL (0-900); Monocytes Percent Auto 7.5 % (3-14); Neutrophils Absolute Auto 9300 /uL (1500-7000); Neutrophils Percent Auto 78.9 % (50-75); Platelet Count 203 X10^3/uL (150-400); Red Blood Cell Count 3.39 X10^6/uL (4.0-5.2); Red Cell Distribution Width 15.7 % (11.6-14.8); White Blood Cell Count 11.7 X10^3/uL (4.5-11.0)
== END ==
PROVIDERS: PCP Student in an Organized Health Care Education/Training Program
DX: Z34.83 Encounter for supervision of other normal pregnancy, third trimester (principal); Z3A.39 39 weeks gestation of pregnancy
CPT/HCPCS: 36415; 85025; 86850; 86900; 86901

== ENCOUNTER 2019-03-07 04:19 | Observation (INO) | payer OTHER, MEDICAID, SELFPAY ==
[2019-03-07 04:47] LABS: UR Morphine/Opiate cutoff 300 Negative (Negative); Ur Creatinine 20 (Normal); Ur Specific Gravity 1.015 (Normal); Urine Amphetamines Negative (Negative); Urine Barbiturates Negative (Negative); Urine Benzodiazepines Negative (Negative); Urine Cocaine Negative (Negative); Urine MDMA Negative (Negative); Urine Methadone Negative (Negative); Urine Methamphetamines Negative (Negative); Urine Oxycodone Negative (Negative); Urine Phencyclidine Negative (Negative); Urine Tetrahydrocannabinol Negative (Negative); Urine Tricyclic Antidepressant Negative (Negative); Urine pH 7 (Normal)
[2019-03-07] MEDS: LACTATED RINGERS 1,000 ML 1000 ML IV (05:45)
[2019-03-07] MEDS: ONDANSETRON 4 MG/2 ML INJ IV (05:45)
--- NOTE | 2019-03-07 07:07 | P.TNLD_ITS ---
Visit Information Visit Information Date of evaluation: 03/07/19 Primary OB Provider: Levi Red On-call OB Provider: Binta Abbott Reason for Evaluation: Yes non-stress test non-stress test reason: other (Rule out ROM) Comments/Additional reasons for admission: 38 year old at 39 weeks gestation with three prior c-sections. Patient's boyfriend called due to recurrent vomiting in patient during the night and questionable ROM. Recommended evaluation in the center. Vital Signs Vital Signs: T 36.8 BP 108/56 P 71 PFSH Medical History Nut allergy (Acute) Surgical History History of tonsillectomy Status post delivery Social History marital status: unmarried,living together Smoking Status: Current every day smoker Exam Vital Signs (past 8 hours): T 36.8 BP 108/56 P 71 Objective Labs Labs: Laboratory Results - last 24 hr 03/07/19 04:30 U Morph 300 ng/mL cutoff Negative Ur Oxycodone Screen Negative Urine Methadone Screen Negative Ur Barbiturates Screen Negative U Tricyclic Antidepress Negative Ur Phencyclidine Scrn Negative Ur Amphetamines Screen Negative U Methamphetamines Scrn Negative Ur MDMA Scrn (Ecstasy) Negative U Benzodiazepines Scrn Negative Urine Cocaine Screen Negative U Marijuana (THC) Screen Negative Evaluation Evaluation Baseline heart rate: 120 Variability: Moderate (11-25) monitor accelerations: Present monitor decelerations: Variable Uterine Contraction Intensity: Mild Category of Tracing: II Laboratory results: Laboratory Tests 03/07/19 04:30 U Morph 300 ng/mL cutoff Negative Ur Oxycodone Screen Negative Urine Methadone Screen Negative Ur Barbiturates Screen Negative U Tricyclic Antidepress Negative Ur Phencyclidine Scrn Negative Ur Amphetamines Screen Negative U Methamphetamines Scrn Negative Ur MDMA Scrn (Ecstasy) Negative U Benzodiazepines Scrn Negative Urine Cocaine Screen Negative U Marijuana (THC) Screen Negative Diagnosis, Plan/Disposition Final Diagnosis (1) 39 weeks gestation of : Current Visit: Yes Status: Acute (2) Vomiting affecting : Current Visit: Yes Status: Acute Plan/Disposition Plan: Patient is a 38 year old at 39 weeks gestation with h/o 3 prior c- sections. She was Amnisure negative and don infrequently so SVE deferred. Nausea and vomiting resolved with IV fluids and Zofran. Patient was able to tolerate fluids and a sandwich and wished to discharge home. Right before she was taken off the monitor there was a variable deceleration with a contraction of which I was not aware until reviewing the strip after the patient had left the hospital. Will unsure Dr. Red is aware. Otherwise Category 1 throughout her stay in triage of 90 minutes. She is scheduled for repeat c- section on 03/10/19. OB Disposition: home
== END 2019-03-07 07:00 | disposition home or self-care (01) ==
DX: O21.9 Vomiting of pregnancy, unspecified (principal); O09.523 Supervision of elderly multigravida, third trimester; O26.23 Pregnancy care for patient with recurrent pregnancy loss, third trimester; O99.333 Smoking (tobacco) complicating pregnancy, third trimester; Z3A.39 39 weeks gestation of pregnancy
CPT/HCPCS: 59025; 80305; 84112; 96360; 96372; G0378; G0379; J2405

== ENCOUNTER 2019-03-10 10:11 | Inpatient (IN) | payer OTHER, MEDICAID, SELFPAY ==
[2019-03-10 11:32] VITALS: BP 103/53
[2019-03-10 11:48] LABS: Add Manual Diff / Slide Review NO; Basophils Absolute Auto 100 /uL (0-100); Basophils Percent Auto 0.8 % (0-2); Eosinophils Absolute Auto 100 /uL (0-450); Eosinophils Percent Auto 0.9 % (2-4); Hemoglobin 10.5 g/dL (12.0-16.0); Lymphocytes Absolute Auto 1400 /uL (1100-4500); Mean Corpuscular HGB Conc 36.4 % (30-36); Mean Corpuscular Hemoglobin 35.8 PG (26-34); Mean Corpuscular Volume 98.5 fL (80-100); Monocytes Absolute Auto 900 /uL (0-900); Monocytes Percent Auto 7.1 % (3-14); Neutrophils Absolute Auto 10100 /uL (1500-7000); Neutrophils Percent Auto 80.2 % (50-75); Platelet Count 175 X10^3/uL (150-400); Red Blood Cell Count 2.94 X10^6/uL (4.0-5.2); Red Cell Distribution Width 15.7 % (11.6-14.8); White Blood Cell Count 12.6 X10^3/uL (4.5-11.0)
[2019-03-10] MEDS: LACTATED RINGERS 1,000 ML 100 ML IV ×2 (13:25→15:54)
[2019-03-10] MEDS: FAMOTIDINE 20 MG/50 ML PIGGYBACK 200 MG IV (15:27)
[2019-03-10] MEDS: CEFOTETAN 2 GM/50 ML PIGGYBACK IV (16:10)
[2019-03-10 16:25] VITALS: RESP 20; O2SAT 100
--- NOTE | 2019-03-10 16:56 | SUR.OPER ---
Supine on Padded OR bed, head on pillow, safety belt at thigh, arms secured on padded arm boards at <90 degrees abduction. Bump under right buttock. Legs uncrossed with pillow under knees, gel pad to heels, tape over blanket to lower legs.
--- NOTE | 2019-03-10 16:58 | P.OP_ITS ---
Operative Date/Time/Diagnoses Date of procedure: 03/10/19 Time of procedure: 16:59 Pre-op diagnosis: Term intrauterine History of three prior section Desire for repeat section Post-op diagnosis: same Procedure & Clinicians Procedure: Procedures Operation Date: 03/10/19 13:30 Actual Procedures Side Surgeon p Section Levi Red MD Indications: Term intrauterine History three prior section Surgeon: Levi Red Airplane Flight Attendant: Massiel Cervantes Anesthesia Type: Spinal Operative Notes Findings: Normal uterus tubes and ovaries Live-born male infant scores nine at 1 minutes and nine at 5 minutes Closure Type: primary Specimen(s): none Estimated blood loss (mL): 400 Blood products transfused: none Procedure in detail: The patient was placed supine upon the operating table. Spinal anesthesia was administered. Patient was draped repaired usual fashion the wound was marked. Transverse incision was made the subcutaneous tissue incised to the fascia. Fascia was incised with sharp knife and this was white by blunt finger dissection. Perineum was opened and white but month fingers section. Perineum or the lower uterine segment was incised and the bladder taken down sharply. Bladder by facet back in place. A transverse scoring incision was made across the lower uterine segment. Perforating incision was made centrally. Fluid was clear. Live born male infant with scores of nine at one min and nine at five minutes was delivered without difficulty. The nursing staff and respiratory therapy staff pronounced the normal in good condition placenta was removed manually.. Cord with three vessels. Estimated blood loss is 400 cc. All membranes from saw should the endometrial cavity. Tubes and ovaries appeared to be normal. The uterine incision was closed an imbrication fashion using a two layer technique with 1. Chromic suture. Visceral perineum was closed with running two 0 chromic suture. Parietal perineum was closed with running two 0 chromic suture. The fascia was closed with two continuous 1. Vicryl sutures. Subcutaneous tissue was closed in two layers. 1st layer was closed with interrupted three 0 Vicryl suture. The skin was closed with a running subcuticular stitch using a Fabián needle. Complications: none Post-operative Condition: stable Disposition: PACU Plan for aftercare: PACU
--- NOTE | 2019-03-10 17:03 | SUR.OPER ---
HEART RATE 143 LIVE MALE BORN AT 1635
[2019-03-10 17:16] VITALS: BP 98/49; PULSE 59; RESP 16; TEMP 36; O2SAT 99
[2019-03-10 17:20] VITALS: BP 96/44; PULSE 56; RESP 11; O2SAT 99
[2019-03-10 17:25] VITALS: BP 92/55; PULSE 55; RESP 10; O2SAT 98
[2019-03-10 17:30] VITALS: BP 96/51; PULSE 56; RESP 9; O2SAT 99
--- NOTE | 2019-03-10 17:50 | SUR.PHASEI ---
Stable PACU stay, to BC in stable condition.
[2019-03-10] MEDS: OXYCODONE/ACETAMINOPHEN 5/325 TABLET 2 TAB PO (18:44)
[2019-03-10] MEDS: fentaNYL 100 MCG/2 ML INJ 50 MCG IV (19:30)
[2019-03-10] MEDS: ONDANSETRON 4 MG/2 ML INJ IV (19:30)
[2019-03-10] MEDS: NICOTINE 7 MG 7 EACH TOP (20:14)
[2019-03-11] MEDS: ONDANSETRON 4 MG/2 ML INJ IV (00:12)
[2019-03-11] MEDS: OXYCODONE/ACETAMINOPHEN 5/325 TABLET 2 TAB PO ×6 (02:26→23:54)
[2019-03-11 03:09] VITALS: BP 91/51; PULSE 62; RESP 16; TEMP 36.7
[2019-03-11] MEDS: fentaNYL 100 MCG/2 ML INJ 50 MCG IV (04:22)
[2019-03-11] MEDS: LACTATED RINGERS 1,000 ML 100 ML IV (04:22)
[2019-03-11] MEDS: METOCLOPRAMIDE 10 MG/2 ML INJ IV (05:28)
[2019-03-11 06:15] LABS: Hematocrit 26.9 % (36-46); Hemoglobin 9.5 g/dL (12.0-16.0)
[2019-03-11] MEDS: DOCUSATE 250 MG CAPSULE PO (07:39)
[2019-03-11] MEDS: FERROUS GLUCONATE 324 MG TABLET PO (07:39)
--- NOTE | 2019-03-11 08:02 | PM.OBPN.1 ---
Subjective - OB Subjective Patient comments: no complaints [place] baby status: doing well feeding status: exclusively breast feeding Narrative: Doing well no major problems Date Patient Seen: 03/11/19 Time Patient Seen: 08:02 Exam Vital Signs (past 8 hours): Oxygen Delivery Method Room Air Narrative Exam Narrative: Fundus U minus three Aquacel dressing in place Lochia scant Objective Labs Result Diagrams: 03/11/19 06:05 Labs: Laboratory Results - last 24 hr 03/10/19 03/10/19 03/11/19 11:40 11:40 06:05 WBC 12.6 H RBC 2.94 L Hgb 10.5 L 9.5 L Hct 29.0 L 26.9 L MCV 98.5 MCH 35.8 H MCHC 36.4 H RDW 15.7 H Plt Count 175 Neut % (Auto) 80.2 H Lymph % (Auto) 11.0 L Jones % (Auto) 7.1 Eos % (Auto) 0.9 L Baso % (Auto) 0.8 Neut # (Auto) 06545 H Lymph # (Auto) 1400 Jones # (Auto) 900 Eos # (Auto) 100 Baso # (Auto) 100 Blood Type O Positive Antibody Screen Negative Assessment & Plan Plan day: 1 plan OB: routine postop care Comments: Having no difficulties. Voiding a good volumes Ambulating well Time Spent With Patient Time: Total time spent is greater than 50% in coordination of care (as documented) at patient's floor/unit and/or counseling patient: Time with patient: less than 15 minutes
[2019-03-11] MEDS: NICOTINE 7 MG 7 EACH TOP (11:53)
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
[2019-03-11] MEDS: ONDANSETRON 4 MG ODT PO (17:53)
[2019-03-11] MEDS: MAGNESIUM HYDROXIDE 30 ML UDC PO (23:34)
[2019-03-12] MEDS: NICOTINE 7 MG PATCH TOP (01:27)
[2019-03-12] MEDS: OXYCODONE/ACETAMINOPHEN 5/325 TABLET 2 TAB PO ×3 (03:57→12:04)
[2019-03-12] MEDS: DOCUSATE 250 MG CAPSULE PO (07:53)
[2019-03-12] MEDS: FERROUS GLUCONATE 324 MG TABLET PO (07:53)
--- NOTE | 2019-03-12 08:28 | PM.OBDS.1 ---
Discharge Providers Provider Date of admission: 03/10/19 10:11 Discharge Date: 03/12/19 Consults: 03/10/19 18:08 Consult to Targeting Acquisition Officer Routine Comment: Discharge provider: Levi Red MD Summary Hospital Course Date Patient Seen: 03/12/19 Time Patient Seen: 08:37 Peripartum Data Delivery Method: Section Procedures: Repeat low segment section current type complications: none Status at Discharge Cognitive/behavioral status at discharge: oriented Functional status at discharge: independent ambulation Overall status at discharge: patient is progressing back to baseline Time Spent with Patient Time attestation: Total time spent providing and/or coordinating discharge services: Time spent: Less than 30 minutes Objective Labs Result Diagrams: 03/11/19 06:05 Exam Vital Signs (past 8 hours): Oxygen Delivery Method Room Air Narrative Exam Narrative: Fundus U minus three Aquacel dressing in place Lochia scant Good bowel sounds Discharge Plan Discharge Plan Patient Disposition: Home Discharge orders & Medications Prescriptions: New oxycodone 10 mg Tablet 10 mg PO Q4HR PRN (Reason: Pain, Severe (7-10)) Qty: 20 RF: 0 docusate sodium 250 mg Capsule 250 mg PO DAILY Qty: 10 RF: 0 ferrous gluconate 324 mg (38 mg iron) Tablet 324 mg PO DAILY Qty: 90 RF: 0 Mka-F-Dlksvw Cream 1 applic topical PRN PRN (Reason: ) Qty: 1 RF: 0 acetaminophen 325 mg Tablet 650 mg PO Q6HR PRN (Reason: As Needed For Fever/Mild Pain) Qty: 20 RF: 0 ondansetron 4 mg Tablet,Disintegrating 4 mg PO Q8H PRN (Reason: nausea) Qty: 10 RF: 0 Discontinued [vitamins] 1 dose PO DAILY Qty: 0 RF: 0 nicotine [Nicoderm CQ] 7 mg/24 hr patch 24 hour 1 patch transdermal Q24H Qty: 7 RF: 7 acetaminophen [Tylenol Extra Strength] 500 mg Tablet 500 mg PO PRN PRN (Reason: pain) RF: 0 epinephrine 0.3 MG/0.3 ML auto-injector 0.3 mg IM X1 PRN (Reason: Allergic Reaction) RF: 0 Follow up/Referrals: Levi Red MD [Physician] - 1 Week Discharge Health Status Multidrug resistant organism: No MDRO Diet/Activity/Treatments Diet: Diet as Tolerated Activity: Up ad kwaku Skin/Wound/Dressing Care Report to your healthcare provider any signs of infection, such as:: chills, fever, increased pain, unusual drainage and unusual redness Dressing: Aquacel dressing
[2019-03-12] MEDS: NICOTINE 7 MG 7 EACH TOP (11:16)
== END 2019-03-12 13:12 | disposition home or self-care (01) | DRG 540 ==
PROC: 10D00Z1 Extraction of Products of Conception, Low, Open Approach (ICD-10-PCS; CPT 59514; principal; 2019-03-10 13:30)
DX: O34.211 Maternal care for low transverse scar from previous cesarean delivery (principal); O99.334 Smoking (tobacco) complicating childbirth; Z3A.39 39 weeks gestation of pregnancy; Z37.0 Single live birth; D62 Acute posthemorrhagic anemia; O99.02 Anemia complicating childbirth; D64.9 Anemia, unspecified
CPT/HCPCS: 36415; 59050; 59514; 59515; 85014; 85018; 85025; 86850; 86900; 86901; 94762; J2250; J2274; J2405; J2590; J2765; J3010

== ENCOUNTER 2019-05-10 06:20 | Emergency (ER) | payer SELFPAY ==
--- NOTE | 2019-05-10 06:25 | ED.GENADULT ---
HPI - General Adult <Alex Grant DO - Last Filed: 05/10/19 18:02> General Chief complaint: Allergic Reaction Stated complaint: Allergic Reaction Time Seen by Provider: 05/10/19 06:24 Source: patient Mode of arrival: EMS Limitations: no limitations History of Present Illness HPI narrative: Patient is a 39-year-old female brought in by EMS for concerns of an allergic reaction. Patient states that she has had a reaction to latex in the past. Approximately 1 hour prior to arrival and shortly prior to the onset of her symptoms she was having sexual intercourse were her partner was wearing a latex condom. She states she has never had a reaction like this in the past. She took 75 mg of Benadryl prior to arrival. EMS gave her an injection of 0.3 mg of epinephrine. Patient denies any rash. No shortness of breath. States she does feel ?weird? she thinks that it is the epinephrine that she was given. No chest pain. states she is coughing up a clear phlegm. Related Data Previous Rx's Medication Instructions Recorded acetaminophen 650 mg PO Q6HR PRN #20 tab 03/12/19 docusate sodium 250 mg PO DAILY #10 cap 03/12/19 ferrous gluconate 324 mg PO DAILY #90 tab 03/12/19 lanolin [Sdi-J-Eopied] 1 applic TOPICAL PRN PRN #1 g 03/12/19 ondansetron 4 mg PO Q8H PRN #10 tab 03/12/19 oxycodone 10 mg tablet 10 mg PO Q4HR PRN #10 tab 03/17/19 epinephrine [EpiPen 2-Santiago] 0.3 mg IM Q15M PRN #2 each 05/10/19 ondansetron 4 mg PO Q8H PRN #10 tab 05/10/19 Allergies Allergy/AdvReac Type Severity Reaction Status Date / Time Fish Containing Products Allergy Severe Anaphylaxis Verified 03/06/19 08:30 zavala Allergy Intermediate Swelling Verified 03/06/19 08:30 of Lip/Tongue/Throat almond [ALMOND] Allergy Unknown Verified 03/06/19 08:30 aspirin [ASPIRIN] Allergy Unknown Verified 03/06/19 08:30 hazelnut [HAZELNUT] Allergy Unknown Verified 03/06/19 08:30 ibuprofen [IBUPROFEN] Allergy Unknown Verified 03/06/19 08:30 latex [LATEX] Allergy Unknown Verified 03/06/19 08:30 melon Allergy Unknown Verified 03/06/19 08:30 soy [SOY] Allergy Unknown Verified 03/06/19 08:30 tree nut [TREE NUT] Allergy Unknown Verified 03/06/19 08:30 hydrocodone [From Vicodin] Allergy Verified 03/06/19 08:30 diazepam [DIAZEPAM] AdvReac Unknown Verified 03/06/19 08:30 promethazine [PROMETHAZINE] AdvReac Unknown Verified 03/06/19 08:30 tetracycline [TETRACYCLINE] AdvReac Unknown Verified 03/06/19 08:30 Review of Systems <Alex Grant DO - Last Filed: 05/10/19 18:02> Constitutional Constitutional: Denies fever(s) Cardiovascular Cardiovascular: Denies chest pain and Reports dyspnea Respiratory Respiratory: Reports cough and Reports dyspnea Gastrointestinal Gastrointestinal: Reports abdominal pain and Denies vomiting Integumentary/Breasts Skin/Breast: Denies rash Neurologic Comments: Feels ?weird? Hematologic/Lymphatic Hematologic/Lymphatic: Denies easy bleeding and Denies easy bruising Allergic/Immunologic Allergic/Immunologic: Denies urticaria Patient History <Alex Grant DO - Last Filed: 05/10/19 18:02> Medical History Nut allergy (Acute) Social History marital status: unmarried,living together household members: significant other Smoking Status: Current every day smoker Smoking Status: Current every day smoker alcohol intake frequency: a few times a week Substance Use Type: does not use Exam <Alex Grant DO - Last Filed: 05/10/19 18:02> Initial Vital Signs Initial Vital Signs: Vital Signs Temperature 99.2 F 05/10/19 06:28 Pulse Rate 122 H 05/10/19 06:28 Respiratory Rate 20 05/10/19 06:28 Blood Pressure 117/84 05/10/19 06:28 Pulse Oximetry 99 05/10/19 06:28 Const General: cooperative and comfortable Limitations: mental status not altered HENMT Head: normal to inspection and normocephalic Resp Effort & Inspection: normal respiratory effort Auscultation: clear to auscultation bilaterally Cardio Rate: tachycardic Rhythm: regular rhythm GI Inspection: non-distended Palpation: soft Skin Lesions: no lesions Rashes: no rashes Neuro General: alert and awake Cognition: normal cognition Speech: speech normal Extrem General: normal to inspection and capillary refill normal Psych Appearance: grossly normal and well kempt <Bebe Ugarte DO - Last Filed: 05/10/19 08:29> Initial Vital Signs Initial Vital Signs: Vital Signs Temperature 99.2 F 05/10/19 06:28 Pulse Rate 122 H 05/10/19 06:28 Respiratory Rate 20 05/10/19 06:28 Blood Pressure 117/84 05/10/19 06:28 Pulse Oximetry 99 05/10/19 06:28 Course <Alex Grant DO - Last Filed: 05/10/19 18:02> Orders Ordered: Discontinued Medications Famotidine (Pepcid) 20 mg in 50 mls @ 200 mls/hr IV NOW ONE Stop: 05/10/19 06:39 Last Infusion: 05/10/19 07:18 Dose: 0 mls/hr Documented by: Admin: 05/10/19 06:39 Dose: 200 mls/hr Documented by: MARILIN Sodium Chloride (Normal Saline 0.9%) 1,000 mls @ 1,000 mls/hr IV BOLUS ONE Stop: 05/10/19 07:25 Last Infusion: 05/10/19 08:10 Dose: 0 mls/hr Documented by: Admin: 05/10/19 06:40 Dose: 1,000 mls/hr Documented by: MARILIN Methylprednisolone (Solu-Medrol 125 Mg Vial) 125 mg IV NOW ONE Stop: 05/10/19 06:26 Last Admin: 05/10/19 06:39 Dose: 125 mg Documented by: MARILIN Ondansetron HCl (Zofran) 4 mg IV NOW ONE Stop: 05/10/19 07:46 Last Admin: 05/10/19 07:51 Dose: 4 mg Documented by: OTTO Vital Signs Vital signs: Vital Signs - 8 hr 05/10/19 06:28 05/10/19 06:42 05/10/19 07:43 Temperature 99.2 F Pulse Rate 122 H 99 H 90 Respiratory Rate 20 13 12 Blood Pressure 117/84 131/73 Blood Pressure [Left Arm] 117/84 Pulse Oximetry 99 100 100 <Bebe Shanel, DO - Last Filed: 05/10/19 08:29> Orders Ordered: Discontinued Medications Famotidine (Pepcid) 20 mg in 50 mls @ 200 mls/hr IV NOW ONE Stop: 05/10/19 06:39 Last Infusion: 05/10/19 07:18 Dose: 0 mls/hr Documented by: Admin: 05/10/19 06:39 Dose: 200 mls/hr Documented by: MARILIN Sodium Chloride (Normal Saline 0.9%) 1,000 mls @ 1,000 mls/hr IV BOLUS ONE Stop: 05/10/19 07:25 Last Infusion: 05/10/19 08:10 Dose: 0 mls/hr Documented by: Admin: 05/10/19 06:40 Dose: 1,000 mls/hr Documented by: MARILIN Methylprednisolone (Solu-Medrol 125 Mg Vial) 125 mg IV NOW ONE Stop: 05/10/19 06:26 Last Admin: 05/10/19 06:39 Dose: 125 mg Documented by: MARILIN Ondansetron HCl (Zofran) 4 mg IV NOW ONE Stop: 05/10/19 07:46 Last Admin: 05/10/19 07:51 Dose: 4 mg Documented by: OTTO Vital Signs Vital signs: Vital Signs - 8 hr 05/10/19 06:28 05/10/19 06:42 05/10/19 07:43 Temperature 99.2 F Pulse Rate 122 H 99 H 90 Respiratory Rate 20 13 12 Blood Pressure 117/84 131/73 Blood Pressure [Left Arm] 117/84 Pulse Oximetry 99 100 100 Medical Decision Making <Alex Grant DO - Last Filed: 05/10/19 18:02> [facility] Narrative Medical decision making narrative: Patient was tachycardic upon arrival. Was not hypoxic. Lungs were clear. No rash. Received epinephrine at 0610 hours by EMS prior to arrival. Patient did have a coughing event after arrival however she states that she feels like things are slightly better than the onset. We will hold on reducing any epinephrine for now. Was given Solu-Medrol and Pepcid IV with fluids. Will observe while she gets medicine an afterwards for return. Care turned over to day provider at change of shift to re-evaluate. <Bebe Ugarte, DO - Last Filed: 05/10/19 08:29> [facility] Narrative Medical decision making narrative: Patient signed out to me by Dr. Grant. I seen and evaluated her personally myself. Allergic reaction is has improved completely. She was standing but seeing that she she was seeing black spots. I had her sit down. A few minutes later she started vomiting. She did not pass out. She was given Zofran. She was monitored for little bit and overall felt better and felt ready need to go home. She is given a prescription for Zofran as well. Discharge Plan Departure Patient Disposition: Home Clinical Impression: Allergic reaction Qualifiers: Encounter type: initial encounter Qualified Code(s): T78.40XA - Allergy, unspecified, initial encounter Discharge Date/Time: 05/10/19 08:23 Instructions: DI for Anaphylaxis Activity Restrictions/Additional Instructions: Recommend that you continue your medications as directed. Contact your primary provider for follow-up. Return to the emergency department for any new or worsening symptoms. a refill prescription for epi pens was transmitted to the [facility] here in [place] Zofran 4 mg every 8 hours only if needed for nausea or vomiting transmitted to [facility] in [place] Prescriptions: New epinephrine [EpiPen 2-Santiago] 0.3 mg/0.3 mL auto-injector 0.3 mg IM Q15M PRN (Reason: anaphylaxis) Qty: 2 RF: 0 ondansetron 4 mg tablet,disintegrating 4 mg PO Q8H PRN (Reason: nausea and vomiting) Qty: 10 RF: 0 No Action oxycodone 10 mg tablet 10 mg PO Q4HR PRN (Reason: Pain, Severe (7-10)) Qty: 10 RF: 0 acetaminophen 325 mg Tablet 650 mg PO Q6HR PRN (Reason: As Needed For Fever/Mild Pain) Qty: 20 RF: 0 docusate sodium 250 mg Capsule 250 mg PO DAILY Qty: 10 RF: 0 ondansetron 4 mg Tablet,Disintegrating 4 mg PO Q8H PRN (Reason: nausea) Qty: 10 RF: 0 Caw-M-Kdvnex Cream 1 applic topical PRN PRN (Reason: ) Qty: 1 RF: 0 ferrous gluconate 324 mg (38 mg iron) Tablet 324 mg PO DAILY Qty: 90 RF: 0
[2019-05-10 06:28] VITALS: BP 117/84; PULSE 122; RESP 20; TEMP 37.3; O2SAT 99; BMI 18.3
[2019-05-10] MEDS: FAMOTIDINE 20 MG/50 ML PIGGYBACK 200 MG IV (06:39)
[2019-05-10] MEDS: methylPREDNISolone 125 MG/2 ML VIAL IV (06:39)
[2019-05-10] MEDS: SODIUM CHLORIDE 0.9% 1,000 ML 1000 ML IV (06:40)
--- NOTE | 2019-05-10 06:41 | DI.RAD.S_ITS ---
PROCEDURE: XR CHEST 1V INDICATIONS: Shortness of breath with cough TECHNIQUE: One view of the chest was acquired. COMPARISON: [facility], , CHEST 2 VIEW, 12/25/2016, 10:22. [facility], [place], XR CHEST 2V, 09/02/2017, 22:31. FINDINGS: Surgical changes and devices: None. Lungs and pleura: Lungs are clear. No pleural effusions or pneumothorax. Mediastinum: Mediastinal contours appear normal. Heart size is normal. Bones and chest wall: No suspicious bony lesions. Overlying soft tissues appear unremarkable. IMPRESSION: Negative chest. No acute cardiopulmonary process is evident. Dictated by: Jeremias Domingo M.D. on 05/10/2019 at 7:21 Approved by: Jeremias Domingo M.D. on 05/10/2019 at 7:26
[2019-05-10 06:42] VITALS: BP 117/84; PULSE 99; RESP 13; O2SAT 100
[2019-05-10 07:43] VITALS: BP 131/73; PULSE 90; RESP 12; O2SAT 100
[2019-05-10] MEDS: ONDANSETRON 4 MG/2 ML INJ IV (07:51)
--- NOTE | 2019-05-10 08:24 | PC.NURSE ---
pt wants to be discharged/ breast feeding baby. so at side. pt ambualtroy
== END 2019-05-10 08:23 | disposition home or self-care (01) ==
PROVIDERS: Emergency Provider Emergency Medicine
DX: T78.40XA Allergy, unspecified, initial encounter (principal); R11.2 Nausea with vomiting, unspecified; R05 Cough; R10.9 Unspecified abdominal pain; R00.0 Tachycardia, unspecified
CPT/HCPCS: 71045; 96361; 96365; 96375; 99284; J2405; J2930

== ENCOUNTER 2019-08-19 16:49 | Emergency (ER) | payer OTHER, MEDICAID, SELFPAY ==
[2019-08-19 16:56] VITALS: BP 142/81; PULSE 102; RESP 26; TEMP 37.1; O2SAT 99
[2019-08-19] MEDS: ONDANSETRON 4 MG/2 ML INJ IV (17:07)
[2019-08-19] MEDS: FAMOTIDINE 20 MG/50 ML PIGGYBACK 200 MG IV (17:07)
[2019-08-19] MEDS: methylPREDNISolone 125 MG/2 ML VIAL IV (17:07)
--- NOTE | 2019-08-19 17:08 | ED_ITS ---
HPI - Allergic Reaction General Chief complaint: Allergic Reaction Stated complaint: Possible allergic reaction Time Seen by Provider: 08/19/19 16:55 Source: patient and EMS Mode of arrival: EMS Limitations: no limitations History of Present Illness HPI narrative: Onset 4 hours ago. Patient has taken 100 mg of Benadryl total since then. Patient has a lot of allergies causing respiratory distress in the past. She feels that her roommate opened a can of tuna today which she is allergic to around noon time. She started taking Benadryl but symptoms did not completely resolve. Ambulance was called. Patient was given epinephrine 0.3 mg IM. Patient states in the past prednisone works the best for her. Usually goes home with steroid pack. Denies does not want test. Just had a baby and starting to finish breast feeding last night. My arrival to room patient was speaking full sentences with registration, no distress MD complaint: allergic reaction Related Data Home Medications Medication Instructions Recorded Confirmed prenat.vits,crystal,ete-vsfi-vjvtn 1 tab PO DAILY 06/20/19 06/20/19 Previous Rx's Medication Instructions Recorded acetaminophen 650 mg PO Q6HR PRN #20 tab 03/12/19 ferrous gluconate 324 mg PO DAILY #90 tab 03/12/19 lanolin [Ifw-D-Iutazy] 1 applic TOPICAL PRN PRN #1 g 03/12/19 epinephrine [EpiPen 2-Santiago] 0.3 mg IM Q15M PRN #2 each 05/10/19 norethindrone (contraceptive) 0.35 0.35 mg PO DAILY #28 tab 05/20/19 mg tablet methylprednisolone [Medrol (Santiago)] See Rx Instructions .ROUTE 08/19/19 .COMPLEX #1 dosepack ondansetron 4 mg PO Q8H PRN #10 tab 08/19/19 Allergies Allergy/AdvReac Type Severity Reaction Status Date / Time Fish Containing Products Allergy Severe Anaphylaxis Verified 06/20/19 15:56 zavala Allergy Intermediate Swelling Verified 06/20/19 15:56 of Lip/Tongue/Throat almond [ALMOND] Allergy Unknown Verified 06/20/19 15:56 aspirin [ASPIRIN] Allergy Unknown Verified 06/20/19 15:56 hazelnut [HAZELNUT] Allergy Unknown Verified 06/20/19 15:56 ibuprofen [IBUPROFEN] Allergy Unknown Verified 06/20/19 15:56 latex [LATEX] Allergy Unknown Verified 06/20/19 15:56 melon Allergy Unknown Verified 06/20/19 15:56 soy [SOY] Allergy Unknown Verified 06/20/19 15:56 tree nut [TREE NUT] Allergy Unknown Verified 06/20/19 15:56 hydrocodone [From Vicodin] Allergy Verified 06/20/19 15:56 diazepam [DIAZEPAM] AdvReac Unknown Verified 06/20/19 15:56 promethazine [PROMETHAZINE] AdvReac Unknown Verified 06/20/19 15:56 tetracycline [TETRACYCLINE] AdvReac Unknown Verified 06/20/19 15:56 Review of Systems Review of Systems Narrative: GENERAL: Denies chills, fatigue, malaise, fever, sweats. HEENT: Denies sinus pain, ear pain, sore throat, difficulty swallowing, dizziness. Complaints throat tightening RESPIRATORY: Complains dyspnea, dry cough CARDIOVASCULAR: Denies chest pain, palpitations, orthopnea, edema, GASTROINTESTINAL: Denies nausea, vomiting, abdominal pain, diarrhea, constipation, melena. : Denies dysuria, frequency, incontinence, hematuria, urinary retention. MUSCULOSKELETAL: denies weakness, joint pain, or bony pain SKIN: Denies rash, skin lesions, or other NEUROLOGIC: Denies weakness, headache, numbness, change in speech, confusion, seizures, incoordination. PSYCHIATRIC: No concerning psychosocial issues. ROS Unobtainable: All systems reviewed & are unremarkable except as noted in HPI and below Patient History Medical History Nut allergy (Acute) Surgical History History of tonsillectomy Status post delivery Social History marital status: unmarried,living together household members: significant other Smoking Status: Current every day smoker Smoking Status: Current every day smoker alcohol intake frequency: a few times a week Substance Use Type: does not use Exam Narrative Exam Narrative: GENERAL: patient appears stated age. Well-nourished, well- developed patient, in no distress, not toxic HEAD: Atraumatic. Normocephalic. EYES: Pupils equal round and reactive. Extraocular motions intact. No scleral icterus. No injection or drainage. ENT: Nose without bleeding, purulent drainage. Throat without erythema, tonsillar hypertrophy or exudate. Airway patent. No drooling, no tongue elevation no tongue swelling no lip swelling no uvular swelling no pharyngeal edema NECK: Trachea midline. Non tender, no stridor CARDIOVASCULAR: Regular rate and rhythm without murmurs, gallops, or rubs. RESPIRATORY: Clear to auscultation. Breath sounds equal bilaterally. No wheezes, rales, or rhonchi. Speaking full sentences, not tachypneic GASTROINTESTINAL: Abdomen soft, non-tender, nondistended. EXTREMITIES: No edema or joint tenderness. BACK: Nontender without deformity or crepitance. No flank tenderness. NEURO: AOx3. SKIN: No rash or erythema of visible areas, no facial hives or rash no arm or back or abdominal rash no swelling or rash on the neck Initial Vital Signs Initial Vital Signs: Vital Signs Temperature 98.7 F 08/19/19 16:56 Pulse Rate 102 H 08/19/19 16:56 Respiratory Rate 26 H 08/19/19 16:56 Blood Pressure 142/81 H 08/19/19 16:56 Pulse Oximetry 99 08/19/19 16:56 Course Orders Ordered: Discontinued Medications Famotidine (Pepcid) 20 mg in 50 mls @ 200 mls/hr IV NOW ONE Stop: 08/19/19 17:16 Last Infusion: 08/19/19 18:08 Dose: 0 mls/hr Documented by: Admin: 08/19/19 17:07 Dose: 200 mls/hr Documented by: ANN Sodium Chloride (Normal Saline 0.9%) 1,000 mls @ 1,000 mls/hr IV BOLUS ONE Stop: 08/19/19 18:01 Last Admin: 08/19/19 17:16 Dose: 1,000 mls/hr Documented by: ANN Methylprednisolone (Solu-Medrol 125 Mg Vial) 125 mg IV NOW ONE Stop: 08/19/19 17:03 Last Admin: 08/19/19 17:07 Dose: 125 mg Documented by: ANN Ondansetron HCl (Zofran) 4 mg IV NOW ONE Stop: 08/19/19 17:04 Last Admin: 08/19/19 17:07 Dose: 4 mg Documented by: ANN Reevaluation(s) Reevaluation #1: Time 6:13 p.m.. Symptoms have resolved. Patient has no complaints and desires discharge home. No nausea. No dyspnea. No throat tightening no rash patient on her cell phone texting. She requests to go home. Appropriate for discharge home. Onset 6 hours ago. Vital Signs Vital signs: Vital Signs - 8 hr 08/19/19 16:56 Temperature 98.7 F Pulse Rate 102 H Respiratory Rate 26 H Blood Pressure 142/81 H Pulse Oximetry 99 MDM - Allergic Reaction Differential Diagnosis Differential diagnosis: Likely allergic reaction Discharge Plan Departure Patient Disposition: Home Clinical Impression: Allergic reaction Instructions: DI for Anaphylaxis Activity Restrictions/Additional Instructions: Continue steroid pack tomorrow. Return if worse. See family doctor next week for recheck Prescriptions: New ondansetron 4 mg tablet,disintegrating 4 mg PO Q8H PRN (Reason: nausea and vomiting) Qty: 10 RF: 0 methylprednisolone [Medrol (Santiago)] 4 mg tablets,dose pack See Rx Instructions .ROUTE .COMPLEX Qty: 1 RF: 0 No Action norethindrone (contraceptive) [Ortho Micronor] 0.35 mg tablet 0.35 mg PO DAILY Qty: 28 RF: 5 prenat.vits,crystal,kja-ehqz-jkmlg Tablet 1 tab PO DAILY RF: 0 epinephrine [EpiPen 2-Santiago] 0.3 mg/0.3 mL auto-injector 0.3 mg IM Q15M PRN (Reason: anaphylaxis) Qty: 2 RF: 0 acetaminophen 325 mg Tablet 650 mg PO Q6HR PRN (Reason: As Needed For Fever/Mild Pain) Qty: 20 RF: 0 Wzm-Y-Uzfnif Cream 1 applic topical PRN PRN (Reason: ) Qty: 1 RF: 0 ferrous gluconate 324 mg (38 mg iron) Tablet 324 mg PO DAILY Qty: 90 RF: 0 Referrals: Levi Red MD [Primary Care Provider] -
[2019-08-19] MEDS: SODIUM CHLORIDE 0.9% 1,000 ML 1000 ML IV (17:16)
--- NOTE | 2019-08-19 18:18 | ED.ALLEREA ---
HPI - Allergic Reaction General Chief complaint: Allergic Reaction Stated complaint: Possible allergic reaction Time Seen by Provider: 08/19/19 16:55 Source: patient and EMS Mode of arrival: EMS Limitations: no limitations Related Data Home Medications Medication Instructions Recorded Confirmed prenat.vits,crystal,uub-gywm-jemee 1 tab PO DAILY 06/20/19 06/20/19 Previous Rx's Medication Instructions Recorded acetaminophen 650 mg PO Q6HR PRN #20 tab 03/12/19 ferrous gluconate 324 mg PO DAILY #90 tab 03/12/19 lanolin [Gyh-O-Ruzdld] 1 applic TOPICAL PRN PRN #1 g 03/12/19 epinephrine [EpiPen 2-Santiago] 0.3 mg IM Q15M PRN #2 each 05/10/19 norethindrone (contraceptive) 0.35 0.35 mg PO DAILY #28 tab 05/20/19 mg tablet methylprednisolone [Medrol (Santiago)] See Rx Instructions .ROUTE 08/19/19 .COMPLEX #1 dosepack ondansetron 4 mg PO Q8H PRN #10 tab 08/19/19 Allergies Allergy/AdvReac Type Severity Reaction Status Date / Time Fish Containing Products Allergy Severe Anaphylaxis Verified 06/20/19 15:56 zavala Allergy Intermediate Swelling Verified 06/20/19 15:56 of Lip/Tongue/Throat almond [ALMOND] Allergy Unknown Verified 06/20/19 15:56 aspirin [ASPIRIN] Allergy Unknown Verified 06/20/19 15:56 hazelnut [HAZELNUT] Allergy Unknown Verified 06/20/19 15:56 ibuprofen [IBUPROFEN] Allergy Unknown Verified 06/20/19 15:56 latex [LATEX] Allergy Unknown Verified 06/20/19 15:56 melon Allergy Unknown Verified 06/20/19 15:56 soy [SOY] Allergy Unknown Verified 06/20/19 15:56 tree nut [TREE NUT] Allergy Unknown Verified 06/20/19 15:56 hydrocodone [From Vicodin] Allergy Verified 06/20/19 15:56 diazepam [DIAZEPAM] AdvReac Unknown Verified 06/20/19 15:56 promethazine [PROMETHAZINE] AdvReac Unknown Verified 06/20/19 15:56 tetracycline [TETRACYCLINE] AdvReac Unknown Verified 06/20/19 15:56 Patient History Medical History Nut allergy (Acute) Surgical History History of tonsillectomy Status post delivery Social History marital status: unmarried,living together household members: significant other Smoking Status: Current every day smoker Smoking Status: Current every day smoker alcohol intake frequency: a few times a week Substance Use Type: does not use Exam Initial Vital Signs Initial Vital Signs: Vital Signs Temperature 98.7 F 08/19/19 16:56 Pulse Rate 102 H 08/19/19 16:56 Respiratory Rate 26 H 08/19/19 16:56 Blood Pressure 142/81 H 08/19/19 16:56 Pulse Oximetry 99 08/19/19 16:56 Course Orders Ordered: Discontinued Medications Famotidine (Pepcid) 20 mg in 50 mls @ 200 mls/hr IV NOW ONE Stop: 08/19/19 17:16 Last Infusion: 08/19/19 18:08 Dose: 0 mls/hr Documented by: Admin: 08/19/19 17:07 Dose: 200 mls/hr Documented by: ANN Sodium Chloride (Normal Saline 0.9%) 1,000 mls @ 1,000 mls/hr IV BOLUS ONE Stop: 08/19/19 18:01 Last Infusion: 08/19/19 18:13 Dose: 0 mls/hr Documented by: Admin: 08/19/19 17:16 Dose: 1,000 mls/hr Documented by: ANN Methylprednisolone (Solu-Medrol 125 Mg Vial) 125 mg IV NOW ONE Stop: 08/19/19 17:03 Last Admin: 08/19/19 17:07 Dose: 125 mg Documented by: ANN Ondansetron HCl (Zofran) 4 mg IV NOW ONE Stop: 08/19/19 17:04 Last Admin: 08/19/19 17:07 Dose: 4 mg Documented by: NAN Vital Signs Vital signs: Vital Signs - 8 hr 08/19/19 16:56 Temperature 98.7 F Pulse Rate 102 H Respiratory Rate 26 H Blood Pressure 142/81 H Pulse Oximetry 99 Discharge Plan Departure Patient Disposition: Home Clinical Impression: Allergic reaction Instructions: DI for Anaphylaxis Activity Restrictions/Additional Instructions: Continue steroid pack tomorrow. Return if worse. See family doctor next week for recheck Prescriptions: New ondansetron 4 mg tablet,disintegrating 4 mg PO Q8H PRN (Reason: nausea and vomiting) Qty: 10 RF: 0 methylprednisolone [Medrol (Santiago)] 4 mg tablets,dose pack See Rx Instructions .ROUTE .COMPLEX Qty: 1 RF: 0 No Action norethindrone (contraceptive) [Ortho Micronor] 0.35 mg tablet 0.35 mg PO DAILY Qty: 28 RF: 5 prenat.vits,crystal,[id number] Tablet 1 tab PO DAILY RF: 0 epinephrine [EpiPen 2-Santiago] 0.3 mg/0.3 mL auto-injector 0.3 mg IM Q15M PRN (Reason: anaphylaxis) Qty: 2 RF: 0 acetaminophen 325 mg Tablet 650 mg PO Q6HR PRN (Reason: As Needed For Fever/Mild Pain) Qty: 20 RF: 0 Tdl-X-Yhgyaa Cream 1 applic topical PRN PRN (Reason: ) Qty: 1 RF: 0 ferrous gluconate 324 mg (38 mg iron) Tablet 324 mg PO DAILY Qty: 90 RF: 0 Referrals: Levi Red MD [Primary Care Provider] -
[2019-08-19 18:25] VITALS: BP 136/69; PULSE 89; RESP 18; O2SAT 99
== END 2019-08-19 18:30 | disposition home or self-care (01) ==
PROVIDERS: Emergency Provider Emergency Medicine
DX: T78.40XA Allergy, unspecified, initial encounter (principal)
CPT/HCPCS: 96365; 96375; 99284; J2405; J2930

== ENCOUNTER 2019-08-22 16:42 | Emergency (ER) | payer OTHER, MEDICAID, SELFPAY ==
[2019-08-22 16:47] VITALS: BP 109/72; PULSE 105; RESP 22; TEMP 36.9; O2SAT 100; BMI 20.5
--- NOTE | 2019-08-22 16:56 | ED.ALLEREA ---
HPI - Allergic Reaction General Chief complaint: Allergic Reaction Stated complaint: poss allergic reaction Time Seen by Provider: 08/22/19 16:42 Source: patient, EMS and old records reviewed Mode of arrival: EMS Limitations: no limitations History of Present Illness HPI narrative: This is a 39-year-old female comes to the emergency department with complaint of allergic reaction. Patient has multiple food, environmental and medication allergies. She is not aware of any recent exposures but states that she may have had 1 unknowingly. Patient states that she has felt like she is having some tightness in her upper airway. She has also been having some abdominal pain. She did have some vomiting today. Patient has not any fevers, no cough, shortness of breath, no wheezing. No hives. Patient has not had any swelling of her lips or oropharynx. She has not had any diarrhea or constipation. She has not had any urinary issues. Patient states that she took 6-7 tablets of Benadryl today for her symptoms no recent was 25 mg about 20 minutes prior to arrival. Patient has not taken any other medications. She states that she does not have any other medical issues, she is not on any oral medications currently. She has had 4 C sections. She has been trying to quit this week but then been smoked in the last day. She also states that she drinks ?way too much alcohol and ?last night but does not normally drink alcohol. She denies any illicit or street drugs. Related Data Home Medications Medication Instructions Recorded Confirmed prenat.vits,crystal,gsw-oieu-cbhvo 1 tab PO DAILY 06/20/19 06/20/19 Previous Rx's Medication Instructions Recorded acetaminophen 650 mg PO Q6HR PRN #20 tab 03/12/19 ferrous gluconate 324 mg PO DAILY #90 tab 03/12/19 lanolin [Bgc-H-Ueutxb] 1 applic TOPICAL PRN PRN #1 g 03/12/19 epinephrine [EpiPen 2-Santiago] 0.3 mg IM Q15M PRN #2 each 05/10/19 norethindrone (contraceptive) 0.35 0.35 mg PO DAILY #28 tab 05/20/19 mg tablet methylprednisolone [Medrol (Santiago)] See Rx Instructions .ROUTE 08/19/19 .COMPLEX #1 dosepack ondansetron 4 mg PO Q8H PRN #10 tab 08/19/19 ondansetron HCl [Zofran] 4 mg PO Q6H PRN #5 tab 08/22/19 prednisone 50 mg PO DAILY #5 tab 08/22/19 Allergies Allergy/AdvReac Type Severity Reaction Status Date / Time Fish Containing Products Allergy Severe Anaphylaxis Verified 08/22/19 18:05 zavala Allergy Intermediate Swelling Verified 08/22/19 18:05 of Lip/Tongue/Throat almond [ALMOND] Allergy Unknown Verified 08/22/19 18:05 aspirin [ASPIRIN] Allergy Unknown Verified 08/22/19 18:05 hazelnut [HAZELNUT] Allergy Unknown Verified 08/22/19 18:05 ibuprofen [IBUPROFEN] Allergy Unknown Verified 08/22/19 18:05 latex [LATEX] Allergy Unknown Verified 08/22/19 18:05 melon Allergy Unknown Verified 08/22/19 18:05 soy [SOY] Allergy Unknown Verified 08/22/19 18:05 tree nut [TREE NUT] Allergy Unknown Verified 08/22/19 18:05 hydrocodone [From Vicodin] Allergy Verified 08/22/19 18:05 diazepam [DIAZEPAM] AdvReac Unknown Verified 08/22/19 18:05 promethazine [PROMETHAZINE] AdvReac Unknown Verified 08/22/19 18:05 tetracycline [TETRACYCLINE] AdvReac Unknown Verified 08/22/19 18:05 Review of Systems Review of Systems ROS Unobtainable: All systems reviewed & are unremarkable except as noted in HPI and below Patient History Medical History Nut allergy (Acute) Surgical History History of tonsillectomy Status post delivery Social History marital status: unmarried,living together household members: significant other Smoking Status: Current every day smoker Smoking Status: Current every day smoker alcohol intake frequency: a few times a week Substance Use Type: does not use Exam Narrative Exam Narrative: GEN: well nourished, well appearing female, alert and oriented x 3, patient appears to be in moderate distress. Patient appears anxious. HEENT: Atraumatic, pupils are equal round reactive to light, extraocular movements are intact, nares are clear, TMs are clear with no fluid, there is no conjunctival pallor. Throat is clear without any exudates, erythema, tonsillar enlargement or uvular deviation, patient tongue and gums are purple (patient states that she had purple gatorade at home). HEART: Tachycardic but regular rate and rhythm without murmur, clicks, rubs. No edema bilateral lower extremities. LUNGS:Lungs clear to auscultation, no wheezes, rales, crackles, chest moves symmetrically, no tachypnea or accessory muscle use. ABD:bowel sounds normal, soft, positive for epigastric tenderness., no guarding, rebound, rigidity, no masses noted, no hepatosplenomegaly :No CVA tenderness. MSCL: Non-tender, no muscle atrophy, muscles strength 5/5 upper and lower extremities, full range of motion NEURO:CN 2-12 intact, sensation normal SKIN: no rash, no erythema or ecchymosis or other changes. Initial Vital Signs Initial Vital Signs: Vital Signs Temperature 98.4 F 08/22/19 16:47 Pulse Rate 105 H 08/22/19 16:47 Respiratory Rate 22 08/22/19 16:47 Blood Pressure 109/72 08/22/19 16:47 Pulse Oximetry 100 08/22/19 16:47 Course Orders Ordered: ED Orders 08/22/19 17:04 Complete Blood Count AUTO DIFF Stat Comprehensive Metabolic Panel Stat Ethanol (ETOH) Stat Lipase Stat 08/22/19 17:17 Urine Drug Screen, Rapid Stat 08/22/19 17:49 EKG-12 Lead Stat 08/22/19 18:35 Test Urine Stat Urine Drug Screen, Rapid Stat Discontinued Medications Famotidine (Pepcid) 20 mg in 50 mls @ 200 mls/hr IV NOW ONE Stop: 08/22/19 17:10 Last Infusion: 08/22/19 18:00 Dose: 0 mls/hr Documented by: Admin: 08/22/19 17:23 Dose: 200 mls/hr Documented by: BRITNEY Sodium Chloride (Normal Saline 0.9%) 1,000 mls @ 1,000 mls/hr IV BOLUS ONE Stop: 08/22/19 17:55 Last Infusion: 08/22/19 19:08 Dose: 0 mls/hr Documented by: Admin: 05/08/20 17:15 Dose: 1,000 mls/hr Documented by: BRITNEY Methylprednisolone (Solu-Medrol 125 Mg Vial) 125 mg IV NOW ONE Stop: 08/22/19 16:57 Last Admin: 08/22/19 17:16 Dose: 125 mg Documented by: BRITNEY Ondansetron HCl (Zofran) 4 mg IV NOW ONE Stop: 08/22/19 17:07 Last Admin: 08/22/19 17:15 Dose: 4 mg Documented by: BRITNEY Vital Signs Vital signs: Vital Signs - 8 hr 08/22/19 16:47 08/22/19 18:04 08/22/19 19:05 Temperature 98.4 F Pulse Rate 105 H 94 H 82 Respiratory Rate 22 20 18 Blood Pressure 109/72 Blood Pressure [Left Arm] 106/63 115/78 Pulse Oximetry 100 99 99 MDM - Allergic Reaction Lab Data Attestation: I reviewed the patient's lab results. Result diagrams: 08/22/19 17:04 08/22/19 17:04 Labs: Lab Results 08/22/19 08/22/19 08/22/19 Range/Units 17:04 17:04 17:04 WBC 8.7 (4.5-11.0) X10^3/uL RBC 4.42 (4.0-5.2) X10^6/uL Hgb 14.6 (12.0-16.0) g/dL Hct 41.6 (36-46) % MCV 94.1 (80-100) fL MCH 33.0 (26-34) PG MCHC 35.1 (30-36) % RDW 13.8 (11.6-14.8) % Plt Count 247 (150-400) X10^3/uL Neut % (Auto) 81.5 H (50-75) % Lymph % (Auto) 12.6 L (25-40) % Gonzales % (Auto) 4.8 (3-14) % Eos % (Auto) 0.5 L (2-4) % Baso % (Auto) 0.6 (0-2) % Neut # (Auto) 7100 H (1277-2618) /uL Lymph # (Auto) 1100 (4046-4308) /uL Gonzales # (Auto) 400 (0-900) /uL Eos # (Auto) 0 (0-450) /uL Baso # (Auto) 100 (0-100) /uL Sodium 141 Cancelled (137-145) mmol/L Potassium 3.7 Cancelled (3.4-5.1) mmol/L Chloride 107 Cancelled (98-107) mmol/L Carbon Dioxide 24 Cancelled (22-32) mmol/L BUN 5 L Cancelled (7-17) mg/dL Creatinine 0.61 Cancelled (0.52-1.04) mg/dL Estimated GFR > 60.0 Cancelled (>60) mL/min BUN/Creatinine Ratio 8.2 Cancelled (6-22) Glucose 77 Cancelled (70-100) mg/dL Calcium 9.1 Cancelled (8.4-10.2) mg/dL Total Bilirubin 0.4 Cancelled (0.2-1.3) mg/dL AST 26 Cancelled (14-36) IU/L ALT 21 Cancelled (<35) IU/L Alkaline Phosphatase 55 Cancelled (38-126) U/L Total Protein 7.3 Cancelled (6.3-8.2) g/dL Albumin 4.6 Cancelled (3.5-5.0) g/dL Globulin 2.7 Cancelled (1.7-4.1) g/dL Albumin/Globulin Ratio 1.7 Cancelled (1.0-2.8) Lipase 46 (23-300) U/L Urine Test (Negative) U Opiates 300ng/mL cut (Negative) Ur Oxycodone Screen (Negative) Urine Methadone Screen (Negative) Ur Barbiturates Screen (Negative) U Tricyclic Antidepress (Negative) Ur Phencyclidine Scrn (Negative) Ur Amphetamines Screen (Negative) U Methamphetamines Scrn (Negative) Ur MDMA Scrn (Ecstasy) (Negative) U Benzodiazepines Scrn (Negative) Urine Cocaine Screen (Negative) U Marijuana (THC) Screen (Negative) Ethyl Alcohol 57 H ( - 10) mg/dL 08/22/19 08/22/19 08/22/19 Range/Units 17:04 18:35 18:35 WBC (4.5-11.0) X10^3/uL RBC (4.0-5.2) X10^6/uL Hgb (12.0-16.0) g/dL Hct (36-46) % MCV (80-100) fL MCH (26-34) PG MCHC (30-36) % RDW (11.6-14.8) % Plt Count (150-400) X10^3/uL Neut % (Auto) (50-75) % Lymph % (Auto) (25-40) % Gonzales % (Auto) (3-14) % Eos % (Auto) (2-4) % Baso % (Auto) (0-2) % Neut # (Auto) (1031-5868) /uL Lymph # (Auto) (0377-6906) /uL Gonzales # (Auto) (0-900) /uL Eos # (Auto) (0-450) /uL Baso # (Auto) (0-100) /uL Sodium (137-145) mmol/L Potassium (3.4-5.1) mmol/L Chloride (98-107) mmol/L Carbon Dioxide (22-32) mmol/L BUN (7-17) mg/dL Creatinine (0.52-1.04) mg/dL Estimated GFR (>60) mL/min BUN/Creatinine Ratio (6-22) Glucose (70-100) mg/dL Calcium (8.4-10.2) mg/dL Total Bilirubin (0.2-1.3) mg/dL AST (14-36) IU/L ALT (<35) IU/L Alkaline Phosphatase (38-126) U/L Total Protein (6.3-8.2) g/dL Albumin (3.5-5.0) g/dL Globulin (1.7-4.1) g/dL Albumin/Globulin Ratio (1.0-2.8) Lipase (23-300) U/L Urine Test Negative (Negative) U Opiates 300ng/mL cut Negative (Negative) Ur Oxycodone Screen Negative (Negative) Urine Methadone Screen Negative (Negative) Ur Barbiturates Screen Negative (Negative) U Tricyclic Antidepress Negative (Negative) Ur Phencyclidine Scrn Negative (Negative) Ur Amphetamines Screen Negative (Negative) U Methamphetamines Scrn Negative (Negative) Ur MDMA Scrn (Ecstasy) Negative (Negative) U Benzodiazepines Scrn Negative (Negative) Urine Cocaine Screen Negative (Negative) U Marijuana (THC) Screen Negative (Negative) Ethyl Alcohol Cancelled ( - 10) mg/dL Urine Dip Bedside Urine Glucose Negative Bedside Urine Bilirubin - Negative Bedside Urine Ketone - Negative Urine Specific [place] 1.010 Bedside Urine Occult Blood +++ Bedside Urine pH 5.5 Bedside Urine Protein - Negative Bedside Urine Urobilinogen - Negative Bedside Urine Nitrite - Negative Bedside Urine Leukocytes - Negative Esterase ECG Data Attestation: I personally reviewed and interpreted this ECG as follows: Prior ECG tracings: available for review Interpretation: Sinus rhythm rate 86 WI 128 QRS is 78 QTC of 466. No ST radiation lower depression appreciated. Patient has prior from 03/13/18. [facility] Narrative Medical decision making narrative: Patient comes in with normal white count, left shift. Patient has normal electrolytes, normal LFTs. Her ETOH is 57. She did have emesis in the room prior to receiving Zofran, she is receiving fluids as well as Solu-Medrol for possible allergic reaction although she may be having some alcohol withdrawal she states she had a significant amount of alcohol yesterday. She is mildly tachycardic and shaky but also appears anxious. She and has EKG that shows no acute changes. On recheck she has improved. She did vomit in the room and urinate on herself and was given supplies to clean herself up. Discussed findings with patient today. Plan to DC home with a short course of steroids as she possibly have both issues. Patient is also requesting antibiotics, she has been having dental issues and given referral although it is unclear if there is any local dentist open secondary to the recent pandemic. There is no obvious signs of infection. And it as she is here today for concern for anaphylaxis/allergic reaction do not feel be appropriate to add an antibiotic at this time without any clear sign of infection. Patient had multiple tablets of benadryl and discussed that she should not have any additional today. Discharge Plan Departure Patient Disposition: Home Clinical Impression: Alcohol use, Allergic reaction Activity Restrictions/Additional Instructions: Follow up in the next week if you are not having any improvement. Take steroids once daily until gone. Prescription was sent to [facility]. You may take zofran 1 tablet sublingually every 6 hours as needed for nausea or vomiting. I would recommend decreasing/avoiding alcohol intake. Return to ER for fevers, new chest pain, shortness of breath, increasing swelling, swelling of your lips, stridor, passing out, hives or other new or concerning symptoms. Prescriptions: New prednisone 50 mg tablet 50 mg PO DAILY Qty: 5 RF: 0 ondansetron HCl [Zofran] 4 mg tablet 4 mg PO Q6H PRN (Reason: nausea and vomiting) Qty: 5 RF: 0 No Action norethindrone (contraceptive) [Ortho Micronor] 0.35 mg tablet 0.35 mg PO DAILY Qty: 28 RF: 5 prenat.vits,crystal,[id number]-[id number] Tablet 1 tab PO DAILY RF: 0 epinephrine [EpiPen 2-Santiago] 0.3 mg/0.3 mL auto-injector 0.3 mg IM Q15M PRN (Reason: anaphylaxis) Qty: 2 RF: 0 ondansetron 4 mg tablet,disintegrating 4 mg PO Q8H PRN (Reason: nausea and vomiting) Qty: 10 RF: 0 methylprednisolone [Medrol (Santiago)] 4 mg tablets,dose pack See Rx Instructions .ROUTE .COMPLEX Qty: 1 RF: 0 acetaminophen 325 mg Tablet 650 mg PO Q6HR PRN (Reason: As Needed For Fever/Mild Pain) Qty: 20 RF: 0 Far-R-Ifubuu Cream 1 applic topical PRN PRN (Reason: ) Qty: 1 RF: 0 ferrous gluconate 324 mg (38 mg iron) Tablet 324 mg PO DAILY Qty: 90 RF: 0 Referrals: Duglas Paige DMD [Physician] - Levi Red MD [Primary Care Provider] -
[2019-08-22 17:09] LABS: Add Manual Diff / Slide Review NO; Basophils Absolute Auto 100 /uL (0-100); Basophils Percent Auto 0.6 % (0-2); Eosinophils Absolute Auto 0 /uL (0-450); Eosinophils Percent Auto 0.5 % (2-4); Hematocrit 41.6 % (36-46); Hemoglobin 14.6 g/dL (12.0-16.0); Lymphocytes Absolute Auto 1100 /uL (1100-4500); Lymphocytes Percent Auto 12.6 % (25-40); Mean Corpuscular HGB Conc 35.1 % (30-36); Mean Corpuscular Volume 94.1 fL (80-100); Monocytes Absolute Auto 400 /uL (0-900); Monocytes Percent Auto 4.8 % (3-14); Neutrophils Absolute Auto 7100 /uL (1500-7000); Neutrophils Percent Auto 81.5 % (50-75); Platelet Count 247 X10^3/uL (150-400); Red Blood Cell Count 4.42 X10^6/uL (4.0-5.2); Red Cell Distribution Width 13.8 % (11.6-14.8); White Blood Cell Count 8.7 X10^3/uL (4.5-11.0)
[2019-08-22] MEDS: ONDANSETRON 4 MG/2 ML INJ IV (17:15)
[2019-08-22] MEDS: SODIUM CHLORIDE 0.9% 1,000 ML 1000 ML IV (17:15)
[2019-08-22] MEDS: methylPREDNISolone 125 MG/2 ML VIAL IV (17:16)
[2019-08-22 17:21] LABS: Alanine Aminotransferase 21 IU/L (<35); Albumin 4.6 g/dL (3.5-5.0); Albumin Globulin Ratio 1.7 (1.0-2.8); Alkaline Phosphatase 55 U/L (38-126); Aspartate Aminotransferase 26 IU/L (14-36); BUN Creatinine Ratio 8.2 (6-22); Bilirubin Total 0.4 mg/dL (0.2-1.3); Blood Urea Nitrogen 5 mg/dL (7-17); Calcium 9.1 mg/dL (8.4-10.2); Carbon Dioxide 24 mmol/L (22-32); Chloride 107 mmol/L (98-107); Estimated Glomerular Filt Rate > 60.0 mL/min (>60); Ethanol (ETOH) 57 mg/dL; Globulin 2.7 g/dL (1.7-4.1); Glucose 77 mg/dL (70-100); HEMOLYSIS < 15 (0-50); Lipase 46 U/L (23-300); Potassium 3.7 mmol/L (3.4-5.1); Sodium 141 mmol/L (137-145); Total Protein 7.3 g/dL (6.3-8.2)
[2019-08-22] MEDS: FAMOTIDINE 20 MG/50 ML PIGGYBACK 200 MG IV (17:23)
[2019-08-22 18:04] VITALS: BP 106/63; PULSE 94; RESP 20; O2SAT 99
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
[2019-08-22 19:03] LABS: Pregnancy Test Urine Negative (Negative)
[2019-08-22 19:05] VITALS: BP 115/78; PULSE 82; RESP 18; O2SAT 99
--- NOTE | 2019-08-22 19:06 | PC.NURSE ---
Pt frequently calling for reassurance. Airway is open and intact. Easy work of breathing w/ no wheezing or crackles noted. No rash/ erythema. Pt is itching skin. States she feels better and would like to leave.
[2019-08-22 19:17] LABS: UR Morphine/Opiate cutoff 300 Negative (Negative); Ur Creatinine Normal (Normal); Ur Specific Gravity Normal (Normal); Urine Amphetamines Negative (Negative); Urine Barbiturates Negative (Negative); Urine Benzodiazepines Negative (Negative); Urine Cocaine Negative (Negative); Urine MDMA Negative (Negative); Urine Methadone Negative (Negative); Urine Methamphetamines Negative (Negative); Urine Oxycodone Negative (Negative); Urine Phencyclidine Negative (Negative); Urine Tetrahydrocannabinol Negative (Negative); Urine Tricyclic Antidepressant Negative (Negative); Urine pH Normal (Normal)
== END 2019-08-22 19:10 | disposition home or self-care (01) ==
PROVIDERS: Emergency Provider Emergency Medicine
DX: T78.40XA Allergy, unspecified, initial encounter (principal); Z72.89 Other problems related to lifestyle; R00.0 Tachycardia, unspecified
CPT/HCPCS: 36415; 80053; 80305; 80320; 81003; 81025; 83690; 85025; 93005; 96365; 96375; 99284; J2405; J2930

== ENCOUNTER 2020-07-10 07:52 | Emergency (ER) | payer OTHER, MEDICAID, SELFPAY ==
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
[2020-07-10 08:01] VITALS: BP 131/74; PULSE 109; RESP 18; TEMP 37.1; O2SAT 98
== END 2020-07-10 08:23 | disposition home or self-care (01) ==
PROVIDERS: Emergency Provider Emergency Medicine
DX: Z00.8 Encounter for other general examination (principal); S20.419A Abrasion of unspecified back wall of thorax, initial encounter; S60.512A Abrasion of left hand, initial encounter; Y09 Assault by unspecified means
CPT/HCPCS: 99281

== ENCOUNTER → 2021-04-06 16:42 | Outpatient (CLI) | payer OTHER, MEDICAID, SELFPAY ==
[2021-04-06 17:08] LABS: COVID19 -Nasal RAPID Negative (Negative)
== END ==
PROVIDERS: Referring Provider Physician Assistant; Visit Provider Physician Assistant
DX: Z20.822 Contact with and (suspected) exposure to COVID-19 (principal)
CPT/HCPCS: 87635

== ENCOUNTER 2022-02-27 17:21 | Emergency (ER) | payer OTHER, MEDICAID, SELFPAY ==
[2022-02-27 17:38] VITALS: BP 163/79; PULSE 85; RESP 24; TEMP 36.8; O2SAT 97
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
--- NOTE | 2022-02-27 20:03 | DI.RAD.S_ITS ---
PROCEDURE: XR ABDOMEN 1V INDICATIONS: Abdominal distention TECHNIQUE: One view of the abdomen acquired. COMPARISON: None. FINDINGS: Surgical changes and devices: None. Bowel: Bowel gas pattern is normal. Soft tissues: No suspicious abdominal calcifications. Bones: No suspicious bony lesions. Visualized osseous structures demonstrate no displaced fractures. IMPRESSION: 1. Bowel gas pattern within normal limits without definite evidence of bowel obstruction. Dictated by: Tony Palencia M.D. on 02/27/2022 at 21:56 Approved by: Tony Palencia M.D. on 02/27/2022 at 21:57
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
[2022-02-27] MEDS: CLINDAMYCIN 150 MG CAPSULE 300 MG PO (22:27)
[2022-02-27 22:43] VITALS: BP 152/74; PULSE 86; RESP 16; O2SAT 99
== END 2022-02-27 22:45 | disposition home or self-care (01) ==
PROVIDERS: Emergency Provider Emergency Medicine
DX: S70.12XA Contusion of left thigh, initial encounter (principal); S80.11XA Contusion of right lower leg, initial encounter; S20.212A Contusion of left front wall of thorax, initial encounter; Y04.2XXA Assault by strike against or bumped into by another person, initial encounter; N89.8 Other specified noninflammatory disorders of vagina; K02.9 Dental caries, unspecified
CPT/HCPCS: 74018; 81003; 81025; 99283; 99284

== ENCOUNTER → 2022-03-30 15:02 | Outpatient (ROUT) | payer SELFPAY ==
[2022-03-30 15:06] LABS: Urine Drug Scr, Empl Non-NIDA See Separate Report
== END ==
DX: Z02.1 Encounter for pre-employment examination (principal)
CPT/HCPCS: 81099

== ENCOUNTER 2022-09-07 19:04 | Emergency (ER) | payer OTHER, MEDICAID, SELFPAY ==
[2022-09-07 19:07] VITALS: BP 134/71; PULSE 102; RESP 18; TEMP 37.2; O2SAT 99
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
[2022-09-07] MEDS: FLUORESCEIN 1 MG STRIP EYE-BOTH (19:31)
[2022-09-07 19:37] VITALS: BMI 20.1
[2022-09-07] MEDS: CLINDAMYCIN 150 MG CAPSULE 300 MG PO (20:37)
== END 2022-09-07 20:46 | disposition home or self-care (01) ==
PROVIDERS: Emergency Provider Emergency Medicine
DX: L03.213 Periorbital cellulitis (principal)
CPT/HCPCS: 99283

== ENCOUNTER 2022-09-25 17:55 | Emergency (ER) | payer OTHER, MEDICAID, SELFPAY ==
[2022-09-25 18:16] VITALS: BP 107/64; PULSE 58; RESP 16; TEMP 37.2; O2SAT 99; BMI 19.3
--- NOTE | 2022-09-25 18:22 | DI.RAD.S_ITS ---
PROCEDURE: XR KNEE RT 3V INDICATIONS: fall with pain TECHNIQUE: 3 views of the knee were acquired. COMPARISON: [facility], , KNEE 3V RIGHT, 07/26/2017, 22:03. FINDINGS: Bones: No fractures or dislocations. No suspicious bony lesions. Soft tissues: Mild joint effusion. No suspicious soft tissue calcifications. IMPRESSION: Mild effusion No visualized acute fracture or dislocation. However, if clinical concern and/or pain persist, short interval imaging followup in 7-10 days is recommended, as occult injury cannot be definitively excluded. Dictated by: Erica Russ M.D. on 09/25/2022 at 19:14 Approved by: Erica Russ M.D. on 09/25/2022 at 19:15
--- NOTE | 2022-09-25 21:10 | ED_ITS ---
HPI - Extremity Injury (Lower) General Chief Complaint: Extremity Injury, Lower Stated Complaint: L ankle swelling, R leg pain, after fall Time Seen by Provider: 09/25/22 20:46 Source: patient Mode of arrival: Ambulatory History of Present Illness HPI Narrative: Patient is a 42-year-old female who a couple days ago fell while caring her child down some stairs. She states she rolled her left ankle. Has been ambulatory on the left ankle since then but has had some swelling. No real discomfort in the left ankle ever since that time she is had some pain on the outside of her right knee. He has been ambulatory on her right leg. Related Data Home Medications Medication Instructions Recorded Confirmed prenat.vits,crystal,[id number] 1 tab PO DAILY 06/20/19 06/20/19 Previous Rx's Medication Instructions Recorded acetaminophen 325 mg tablet 650 mg PO Q6HR PRN As Needed For 03/12/19 Fever/Mild Pain #20 tabs ferrous gluconate 324 mg (38 mg 324 mg PO DAILY #90 tabs 03/12/19 iron) tablet lanolin (Txp-L-Bwpiup topical 1 applic topical PRN PRN 03/12/19 cream) #1 g epinephrine 0.3 mg/0.3 mL 0.3 mg (0.3 mL) IM Q15M PRN 05/10/19 injection, auto-injector (EpiPen anaphylaxis 3 doses #2 ea 2-Santiago) norethindrone (contraceptive) 0.35 0.35 mg PO DAILY #28 tabs 05/20/19 mg tablet (Ortho Micronor) prednisone 50 mg tablet 50 mg PO DAILY #5 tabs 08/22/19 hydroxyzine HCl 25 mg tablet 25 mg PO TID PRN anxiety #20 tabs 02/27/22 ibuprofen 600 mg tablet 600 mg PO Q6H PRN fever or pain 09/25/22 #30 tabs Allergies Allergy/AdvReac Type Severity Reaction Status Date / Time Fish Containing Products Allergy Severe Anaphylaxis Verified 09/07/22 19:10 zavala Allergy Intermediate Swelling Verified 09/07/22 19:10 of Lip/Tongue/Throat almond [ALMOND] Allergy Unknown Verified 09/07/22 19:10 aspirin [ASPIRIN] Allergy Unknown Verified 09/07/22 19:10 hazelnut [HAZELNUT] Allergy Unknown Verified 09/07/22 19:10 ibuprofen [IBUPROFEN] Allergy Unknown Verified 09/07/22 19:10 latex [LATEX] Allergy Unknown Verified 09/07/22 19:10 melon Allergy Unknown Verified 09/07/22 19:10 soy [SOY] Allergy Unknown Verified 09/07/22 19:10 tree nut [TREE NUT] Allergy Unknown Verified 09/07/22 19:10 hydrocodone [From Vicodin] Allergy Verified 09/07/22 19:10 Penicillins Allergy Verified 09/25/22 18:16 diazepam [DIAZEPAM] AdvReac Unknown Verified 09/07/22 19:10 promethazine [PROMETHAZINE] AdvReac Unknown Verified 09/07/22 19:10 tetracycline [TETRACYCLINE] AdvReac Unknown Verified 09/07/22 19:10 Review of Systems Constitutional Constitutional: Reports system reviewed and no additional complaints, except as documented Musculoskeletal Musculoskeletal: Reports system reviewed and no additional complaints, except as documented Integumentary/Breasts Skin/Breast: Reports system reviewed and no additional complaints, except as documented Neurologic Neurologic: Reports system reviewed and no additional complaints, except as documented Patient History Medical History Nut allergy Surgical History History of tonsillectomy Status post delivery Social History marital status: unmarried,living together household members: significant other Smoking Status: Current every day smoker Smoking Status: Current every day smoker alcohol intake frequency: 3 or more drinks per day Substance Use Type: does not use Exam Initial Vital Signs Initial Vital Signs: Vital Signs Temperature 99.0 F 09/25/22 18:16 Pulse Rate 58 L 09/25/22 18:16 Respiratory Rate 16 09/25/22 18:16 Blood Pressure 107/64 09/25/22 18:16 Pulse Oximetry 99 09/25/22 18:16 Oxygen Delivery Method Room Air 09/25/22 18:16 Const General: cooperative, comfortable and No ill appearing HENMT Head: normal to inspection and normocephalic Skin General: no rashes or lesions noted Neuro Sensory Exam: no sensory deficits noted Extrem Other: Patient does have discomfort along the lateral aspect of the right knee. Her hamstrings are unremarkable. Medial aspects unremarkable. Her left ankle does have some swollen but there is no tenderness along the medial or lateral malleolus or along the Achilles tendon or on the dorsum of the foot. Course Orders Ordered: ED Orders 09/25/22 18:22 XR knee RT 3V Stat Discontinued Medications Ibuprofen (Ibuprofen 400 Mg Tablet) 800 mg PO NOW ONE Stop: 09/25/22 21:12 Last Admin: 09/25/22 21:18 Dose: 800 mg Documented By: JAN Vital Signs Vital signs: Vital Signs - 8 hr 09/25/22 21:20 Pulse Rate 86 Respiratory Rate 16 Blood Pressure 104/56 L Pulse Oximetry 97 Oxygen Delivery Method Room Air MDM - Extremity Injury (Lower) Imaging Data Extremity x-ray #1: Radiologist's Impression: PROCEDURE:? XR KNEE RT 3V ? INDICATIONS:? fall with pain ? TECHNIQUE:? 3 views of the knee were acquired.? ? COMPARISON:? [facility], , KNEE 3V RIGHT, 07/26/2017, 22:03. ? FINDINGS:? ? Bones:? No fractures or dislocations.? No suspicious bony lesions.? ? Soft tissues:? Mild joint effusion.? No suspicious soft tissue calcifications.? ? ? IMPRESSION:? Mild effusion No visualized acute fracture or dislocation. However, if clinical concern and/or pain persist, short interval imaging followup in 7-10 days is recommended, as occult injury cannot be definitively excluded. [facility] Narrative Medical decision making narrative: Patient has been ambulatory. X-ray shows no signs of fracture. I do not feel that we need to x-ray her left ankle given the lack of discomfort in the fact that she is been ambulatory on this. We gave her an Eugene bandage that she can wrap her ankle and also her knee to try to help with the discomfort. Despite ibuprofen being on her allergy list she states she is not allergic to ibuprofen. States she is allergic to aspirin. She was given an ibuprofen. Conservative measures from this point forward. She was given return precautions. She expressed understanding and agreement. Discharge Plan Departure Patient Disposition: Home Clinical Impression: Ankle sprain, Knee sprain Instructions: DI for Knee Sprain, DI for Ankle Sprain, How To Perform RICE (Rest, Ice, Compress, Elevate) Activity Restrictions/Additional Instructions: There were no fractures noted on the x-rays. You can walk on your legs as tolerated. Use the anti-inflammatories as discussed. Return to the emergency department for new symptoms. Prescriptions: New ibuprofen 600 mg tablet 600 mg PO Q6H PRN (Reason: fever or pain) Qty: 30 0RF Rx Instructions: pt states she is not allergic to motrin No Action norethindrone (contraceptive) [Ortho Micronor] 0.35 mg tablet 0.35 mg PO DAILY Qty: 28 5RF prenat.vits,crystal,[id number] Tablet 1 tab PO DAILY epinephrine [EpiPen 2-Santiago] 0.3 mg/0.3 mL auto-injector 0.3 mg IM Q15M PRN (Reason: anaphylaxis) Qty: 2 0RF Rx Instructions: until response prednisone 50 mg tablet 50 mg PO DAILY Qty: 5 0RF acetaminophen 325 mg Tablet 650 mg PO Q6HR PRN (Reason: As Needed For Fever/Mild Pain) Qty: 20 0RF Vpm-J-Llxvwo Cream 1 applic topical PRN PRN (Reason: ) Qty: 1 0RF ferrous gluconate 324 mg (38 mg iron) Tablet 324 mg PO DAILY Qty: 90 0RF hydroxyzine HCl 25 mg tablet 25 mg PO TID PRN (Reason: anxiety) Qty: 20 0RF Stand Alone Forms: Patient Portal/API
[2022-09-25] MEDS: IBUPROFEN 400 MG TABLET 800 MG PO (21:18)
[2022-09-25 21:20] VITALS: BP 104/56; PULSE 86; RESP 16; O2SAT 97
== END 2022-09-25 21:20 | disposition home or self-care (01) ==
PROVIDERS: Emergency Provider Emergency Medicine
DX: S93.402A Sprain of unspecified ligament of left ankle, initial encounter (principal); S83.92XA Sprain of unspecified site of left knee, initial encounter; X50.1XXA Overexertion from prolonged static or awkward postures, initial encounter
CPT/HCPCS: 73562; 99283